=== PATIENT | female | born 1995 | race Caucasian/White ===

== ENCOUNTER 2017-04-30 13:14 | Outpatient (CLI) | payer BC | END 2017-04-30 13:15 | disposition EMS.NT | LOC: EMS 13:14 | PROVIDERS: ATTEND Surgery | DX: S40.811A Abrasion of right upper arm, initial encounter (principal); Y04.2XXA Assault by strike against or bumped into by another person, initial encounter ==

== ENCOUNTER 2017-06-06 13:35 | Outpatient (CLI) | payer BC, MEDICAID, OTHER | END 2017-06-06 13:36 | disposition critical access hospital (66) | LOC: EMS 13:35 | PROVIDERS: ATTEND Surgery | DX: S01.81XA Laceration without foreign body of other part of head, initial encounter (principal); Y00.XXXA Assault by blunt object, initial encounter | CPT/HCPCS: A0425; A0429 ==

== ENCOUNTER 2017-06-06 14:03 | Emergency (ER) | payer BC, MEDICAID, OTHER ==
[2017-06-06 14:11] VITALS: BP 128/82
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
== END 2017-06-06 15:59 | disposition home or self-care (01) ==
LOC: EDUNIT# → ED 14:03
DX: S01.81XA Laceration without foreign body of other part of head, initial encounter (principal); Y00.XXXA Assault by blunt object, initial encounter; Y92.830 Public park as the place of occurrence of the external cause; R03.0 Elevated blood-pressure reading, without diagnosis of hypertension; F17.200 Nicotine dependence, unspecified, uncomplicated
CPT/HCPCS: 12011; 99282; 99283

== ENCOUNTER 2018-01-23 11:37 | Emergency (ER) | payer BC, MEDICAID, OTHER ==
--- NOTE | 2018-01-23 12:24 | ED Physician Documentation ---
PD HPI FEMALE - Stated complaint Stated Complaint: FEMALE - Chief complaint Chief Complaint: General - History obtained from History obtained from: Patient - History of Present Illness Timing - onset: Other (she does not have any dysuria nor vaginal discharge.) Associated symptoms: No: Fever, Vaginal discharge, Genital sore/lesion, Dysuria , Urinary frequency Contributing factors: Exposed to STD (she found out her boyfriend had cheated on her and wants to be checked for STDs. No symptoms.) Similar symptoms before: Has not had sx before Recently seen: Not recently seen Review of Systems Constitutional: denies: Fever, Chills : denies: Dysuria, Frequency, Discharge Skin: denies: Rash Endocrine: denies: Weight loss, Swollen lymph nodes PD PAST MEDICAL HISTORY - Past Medical History Past Medical History: Yes Psych: Depression, Anxiety - Past Surgical History Past Surgical History: Yes Ortho: ACL reconstruction - Present Medications Home Medications: Ambulatory Orders Medication Instructions Recorded Confirmed Sertraline [Zoloft] 50 mg PO DAILY 06/06/17 06/06/17 risperiDONE [Risperdal] 1 mg PO DAILY 06/06/17 06/06/17 Sulfamethox/Trimeth 800/160 1 each PO BID #10 tablet 01/23/18 [Bactrim Ds 800/160] - Allergies Allergies/Adverse Reactions: Allergies Allergy/AdvReac Type Severity Reaction Status Date / Time No Known Drug Allergies Allergy Verified 06/06/17 14:59 - Social History Does the pt smoke?: Yes Smoking Status: Current every day smoker Does the pt drink ETOH?: No Does the pt have substance abuse?: No - Immunizations Immunizations are current?: Yes PD ED PE NORMAL - Vitals Vital signs reviewed: Yes - General General: Alert and oriented X 3, No acute distress, Well developed/nourished - Female Female : 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 Cervix appears normal. ) - Rectal Rectal: Deferred - Derm Derm: Normal color, Warm and dry Results - Vitals Vitals: Oxygen O2 Source Room air - Labs Labs: Microbiology 01/23/18 12:15 Urine Culture - Preliminary Urine,Clean Catch Laboratory Tests 01/23/18 01/23/18 01/23/18 12:15 12:15 12:58 Urine Color YELLOW Urine Clarity CLOUDY Urine pH 6.0 Ur Specific [place] 1.025 1.025 Urine Protein NEGATIVE Urine Glucose (UA) NEGATIVE Urine Ketones NEGATIVE Urine Occult Blood TRACE-INTA Urine Nitrite POSITIVE H Urine Bilirubin NEGATIVE Urine Urobilinogen 0.2 (NORMAL) Ur Leukocyte Esterase NEGATIVE Urine RBC 0-5 Urine WBC 0-3 Ur Squamous Epith Cells RARE Squamous Urine Bacteria Many H Ur Microscopic Review INDICATED Urine Culture Comments INDICATED Urine HCG, Qual NEGATIVE C.trachomatis RNA (TMA) NOT DETECTED Chlamydia/GC Comment SEE NOTE N.gonorrhoeae RNA (TMA) NOT DETECTED PD MEDICAL DECISION MAKING - ED course Complexity details: considered differential (she wanted screening for vaginal STDs (offered blood testing too for HIV and syphylis, but she declined). Incidental UTI.), d/w patient Departure - Departure Disposition: 01 Home, Self Care Clinical Impression: Concern about STD in female without diagnosis UTI (urinary tract infection) Qualifiers: Urinary tract infection type: acute cystitis Hematuria presence: without hematuria Qualified Code(s): N30.00 - Acute cystitis without hematuria Condition: Stable Record reviewed to determine appropriate education?: Yes Instructions: ED UTI Cystitis Female Prescriptions: Sulfamethox/Trimeth 800/160 [Bactrim Ds 800/160] 1 each PO BID #10 tablet Comments: Drink lots of fluids. Bactrim for UTI. The vaginal culture results will take about 3 days for results and will call you if they are positive. Discharge Date/Time: 01/23/18 13:16
[2018-01-23 12:32] LABS: BILIRUBIN,URINE NEGATIVE (NEGATIVE); GLUCOSE, URINE (UA) NEGATIVE (NEGATIVE); KETONES,URINE (UA) NEGATIVE (NEGATIVE); LEUKOCYTE ESTERASE, URINE NEGATIVE (NEGATIVE); NITRITE,URINE POSITIVE (NEGATIVE); OCCULT BLOOD,URINE TRACE-INTA (NEGATIVE); PROTEIN,URINE NEGATIVE (NEGATIVE); UROBILINOGEN,URINE 0.2 (NORMAL) E.U./dL (NORMAL)
[2018-01-23 12:35] LABS: CLARITY,URINE CLOUDY (CLEAR)
[2018-01-23 12:37] LABS: HCG UR QUAL NEGATIVE
[2018-01-23 12:44] LABS: BACTERIA,URINE Many /HPF (None Seen); RBC,URINE 0-5 /HPF (0-5); SQUAMOUS EPITHELIAL CELL,UR RARE Squamous (<= Few)
[2018-01-23] MEDS ORDERED: SULFAMETH/TRIMETH DS 800/160 MG TABLET PO STA (13:01)
[2018-01-23 13:08] VITALS: BP 124/75
== END 2018-01-23 13:16 | disposition home or self-care (01) ==
LOC: ED 11:37
DX: Z20.2 Contact with and (suspected) exposure to infections with a predominantly sexual mode of transmission (principal); N30.00 Acute cystitis without hematuria
CPT/HCPCS: 81001; 81025; 87077; 87086; 87181; 87491; 87591; 99283; A9270; 81003; 87210

== ENCOUNTER 2018-03-25 19:54 | Emergency (ER) | payer MEDICAID ==
[2018-03-25 20:58] LABS: HCG UR QUAL NEGATIVE
[2018-03-25 21:40] LABS: BILIRUBIN,URINE NEGATIVE (NEGATIVE); CLARITY,URINE CLEAR (CLEAR); GLUCOSE, URINE (UA) NEGATIVE (NEGATIVE); KETONES,URINE (UA) NEGATIVE (NEGATIVE); LEUKOCYTE ESTERASE, URINE NEGATIVE (NEGATIVE); NITRITE,URINE NEGATIVE (NEGATIVE); OCCULT BLOOD,URINE NEGATIVE (NEGATIVE); PH,URINE 6.5 PH (5.0-7.5); PROTEIN,URINE NEGATIVE (NEGATIVE); UROBILINOGEN,URINE 0.2 (NORMAL) E.U./dL (NORMAL)
--- NOTE | 2018-03-25 23:05 | ED Physician Documentation ---
PD HPI FEMALE - Stated complaint Stated Complaint: ABD PX - Chief complaint Chief Complaint: Abd Pain - History obtained from History obtained from: Patient - History of Present Illness Timing - onset: How many weeks ago (1) Timing - details: Intermittant Associated symptoms: Abdominal pain Contributing factors: Sexually active Similar symptoms before: Has not had sx before - Additional information Additional information: The patient is a 23-year-old female who presents with mild lower abdominal pain which she has had intermittently for the past week. She has noticed a.m. nausea and occasional vomiting for the past week. She took a home test yesterday and it was positive. She denies fever, dysuria, or vaginal bleeding. Her last menstrual period was about 6 weeks ago. Review of Systems Constitutional: denies: Fever Nose: denies: Congestion Throat: denies: Sore throat Respiratory: denies: Dyspnea, Cough GI: reports: Abdominal Pain, Nausea, Vomiting. denies: Diarrhea : reports: LMP (About 6 weeks ago.). denies: Dysuria, Vaginal bleeding Skin: denies: Rash Musculoskeletal: denies: Back pain Neurologic: denies: Headache PD PAST MEDICAL HISTORY - Past Medical History Past Medical History: No Endocrine/Autoimmune: None Psych: Depression, Anxiety - Past Surgical History Past Surgical History: Yes Ortho: ACL reconstruction - Present Medications Home Medications: Ambulatory Orders Medication Instructions Recorded Confirmed Sertraline [Zoloft] 50 mg PO DAILY 06/06/17 06/06/17 risperiDONE [Risperdal] 1 mg PO DAILY 06/06/17 06/06/17 Sulfamethox/Trimeth 800/160 1 each PO BID #10 tablet 01/23/18 [Bactrim Ds 800/160] - Allergies Allergies/Adverse Reactions: Allergies Allergy/AdvReac Type Severity Reaction Status Date / Time No Known Drug Allergies Allergy Verified 06/06/17 14:59 - Social History Does the pt smoke?: Yes Smoking Status: Current every day smoker Does the pt drink ETOH?: No Does the pt have substance abuse?: No - Immunizations Immunizations are current?: Yes - POLST Patient has POLST: No PD ED PE NORMAL - Vitals Vital signs reviewed: Yes (normal) - General General: Alert and oriented X 3, Well developed/nourished - HEENT HEENT: Atraumatic, Moist mucous membranes - Neck Neck: No adenopathy, No JVD - Cardiac Cardiac: RRR - Respiratory Respiratory: No respiratory distress, Clear bilaterally - Abdomen Abdomen: Soft, Non tender, No organomegaly - Back Back: No CVA TTP - Derm Derm: No rash - Extremities Extremities: No tenderness to palpate, No edema - Neuro Neuro: Alert and oriented X 3, No motor deficit, Normal speech Results - Vitals Vitals: Vital Signs - 24 hr 03/25/18 23:12 Temperature 36.4 C L Heart Rate 88 Respiratory 18 Rate Blood Pressure 110/57 L O2 Saturation 99 Oxygen O2 Source Room air - Labs Labs: Laboratory Tests 03/25/18 03/25/18 03/25/18 20:15 20:17 21:57 HCG, Quant 34.48 Urine Color YELLOW Urine Clarity CLEAR Urine pH 6.5 Ur Specific [place] 1.025 1.025 Urine Protein NEGATIVE Urine Glucose (UA) NEGATIVE Urine Ketones NEGATIVE Urine Occult Blood NEGATIVE Urine Nitrite NEGATIVE Urine Bilirubin NEGATIVE Urine Urobilinogen 0.2 (NORMAL) Ur Leukocyte Esterase NEGATIVE Ur Microscopic Review NOT INDICATED Urine Culture Comments NOT INDICATED Urine HCG, Qual NEGATIVE PD MEDICAL DECISION MAKING - ED course Complexity details: reviewed results, re-evaluated patient, considered differential, d/w patient ED course: The patient's presentation is concerning for the possibility of very early , versus ectopic , versus possible miscarriage. Her urine test is negative, but a serum quantitative hCG level is minimally elevated at 34.5. With an hCG level this low, I doubt that pelvic ultrasound would be of diagnostic value. The patient is asymptomatic while in the emergency department, with no tenderness to palpation of her abdomen, and no nausea. She is being discharged with a prescription to have quantitative hCG repeated in 3 days, with the results being called to her primary physician. She has an appointment scheduled with his primary physician tomorrow. I discussed with her and her companions potentially worrisome signs or symptoms that should prompt reevaluation in the emergency department. Departure - Departure Disposition: 01 Home, Self Care Clinical Impression: Elevated serum hCG Condition: Stable Instructions: ED Abdominal Pain Rule Out Ectopic Follow-Up: Dayan Giang DNP [Primary Care Provider] - Comments: Repeat the quantitative hCG level in 3 days. Follow up with your primary physician in 3 or 4 days. Call to schedule appointment. Return to the emergency department if increasing abdominal or pelvic pain, persistent vomiting, or otherwise worsening symptoms. Discharge Date/Time: 03/25/18 23:13
[2018-03-25 23:13] VITALS: BP 110/57
== END 2018-03-25 23:13 | disposition home or self-care (01) ==
LOC: ED 19:54
DX: R79.89 Other specified abnormal findings of blood chemistry (principal); F17.200 Nicotine dependence, unspecified, uncomplicated
CPT/HCPCS: 36415; 81001; 81003; 81025; 84702; 87086; 99283

== ENCOUNTER 2018-03-28 08:00 | Outpatient (CLI) | payer MEDICAID | END 2018-03-28 08:01 | disposition home or self-care (01) | LOC: LAB.N 08:00 | PROVIDERS: ATTEND Nurse Practitioner | DX: O02.81 Inappropriate change in quantitative human chorionic gonadotropin (hCG) in early pregnancy (principal) | CPT/HCPCS: 36415; 84702 ==

== ENCOUNTER 2018-04-06 11:20 | Emergency (ER) | payer MEDICAID ==
[2018-04-06 11:51] LABS: BILIRUBIN,URINE NEGATIVE (NEGATIVE); GLUCOSE, URINE (UA) NEGATIVE (NEGATIVE); KETONES,URINE (UA) NEGATIVE (NEGATIVE); LEUKOCYTE ESTERASE, URINE NEGATIVE (NEGATIVE); NITRITE,URINE POSITIVE (NEGATIVE); OCCULT BLOOD,URINE NEGATIVE (NEGATIVE); PH,URINE 7.5 PH (5.0-7.5); PROTEIN,URINE NEGATIVE (NEGATIVE); UROBILINOGEN,URINE 0.2 (NORMAL) E.U./dL (NORMAL)
[2018-04-06 11:53] LABS: CLARITY,URINE CLEAR (CLEAR); HCG UR QUAL POSITIVE
[2018-04-06 11:58] LABS: RBC,URINE 0-5 /HPF (0-5)
[2018-04-06 11:59] LABS: BACTERIA,URINE Many /HPF (None Seen); SQUAMOUS EPITHELIAL CELL,UR FEW Squamous (<= Few)
[2018-04-06] MEDS ORDERED: SODIUM CHLORIDE 0.9% 1,000 ML IV ONE (12:10)
[2018-04-06] MEDS ORDERED: NITROFURANTOIN MACRO 100 MG CAPSULE PO STA (12:10)
--- NOTE | 2018-04-06 12:12 | ED Physician Documentation ---
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 patient states that she has had the pain for about the last 4 days and the dizziness was yesterday. patient has not had any care. Patient denies vaginal bleeding or vaginal discharge. Review of Systems Ten Systems: 10 systems reviewed and negative Constitutional: denies: Fever, Chills GI: reports: Abdominal Pain. denies: Nausea, Vomiting : denies: Discharge, Vaginal bleeding PD PAST MEDICAL HISTORY - Past Medical History Past Medical History: Yes Cardiovascular: None Respiratory: None Neuro: Migraines Endocrine/Autoimmune: None GI: None SERVICES MANAGER: None : Chronic bladder infection HEENT: None Psych: Depression, Anxiety Musculoskeletal: None Derm: None - Past Surgical History Past Surgical History: Yes Ortho: ACL reconstruction - Present Medications Home Medications: Ambulatory Orders Medication Instructions Recorded Confirmed Nitrofurantoin Monohyd/M-Cryst 100 mg PO BID 5 Days capsule 04/06/18 [Macrobid 100 mg Capsule] - Allergies Allergies/Adverse Reactions: Allergies Allergy/AdvReac Type Severity Reaction Status Date / Time No Known Drug Allergies Allergy Verified 06/06/17 14:59 - Social History Does the pt smoke?: Yes Smoking Status: Former smoker Does the pt drink ETOH?: No Does the pt have substance abuse?: No - Immunizations Immunizations are current?: Yes - POLST Patient has POLST: No PD ED PE NORMAL - Vitals Vital signs reviewed: Yes - General General: Alert and oriented X 3, No acute distress - HEENT HEENT: Atraumatic, PERRL - Neck Neck: Supple, no meningeal sign - Cardiac Cardiac: RRR - Respiratory Respiratory: No respiratory distress - Abdomen Abdomen: Soft, Non tender, Non distended - Rectal Rectal: Deferred - Derm Derm: Normal color, Warm and dry - Extremities Extremities: No deformity - Neuro Neuro: Alert and oriented X 3 Eye Opening: Spontaneous Motor: Obeys Commands Verbal: Oriented GCS Score: 15 - Psych Psych: Normal mood Results - Vitals Vitals: Vital Signs - 24 hr 04/06/18 04/06/18 11:26 13:53 Temperature 36.6 C 36.4 C L Heart Rate 88 92 Respiratory 16 18 Rate Blood Pressure 134/74 H 115/72 O2 Saturation 98 100 Oxygen O2 Source Room air - Labs Labs: Laboratory Tests 04/06/18 04/06/18 04/06/18 11:45 12:40 12:40 WBC 7.3 RBC 4.00 L Hgb 13.0 Hct 37.8 MCV 94.5 MCH 32.5 H MCHC 34.3 RDW 13.0 Plt Count 198 MPV 11.2 H Neut # (Auto) 4.4 Lymph # (Auto) 2.2 Pope # (Auto) 0.6 Eos # (Auto) 0.1 Baso # (Auto) 0.0 Absolute Nucleated RBC 0.00 Nucleated RBC % 0.0 Sodium 135 Potassium 4.1 Chloride 104 Carbon Dioxide 26 Anion Gap 5.0 L BUN 10 Creatinine 0.6 Estimated GFR (MDRD) 126 Glucose 72 Calcium 9.0 Total Bilirubin 0.5 AST 22 ALT 16 Alkaline Phosphatase 55 Total Protein 7.2 Albumin 3.9 Globulin 3.3 Albumin/Globulin Ratio 1.2 Lipase 29 HCG, Quant Urine Color YELLOW Urine Clarity CLEAR Urine pH 7.5 Ur Specific [place] 1.015 Urine Protein NEGATIVE Urine Glucose (UA) NEGATIVE Urine Ketones NEGATIVE Urine Occult Blood NEGATIVE Urine Nitrite POSITIVE H Urine Bilirubin NEGATIVE Urine Urobilinogen 0.2 (NORMAL) Ur Leukocyte Esterase NEGATIVE Urine RBC 0-5 Urine WBC 0-3 Ur Squamous Epith Cells FEW Squamous Urine Bacteria Many H Ur Microscopic Review INDICATED Urine Culture Comments INDICATED Urine HCG, Qual POSITIVE 04/06/18 12:40 WBC RBC Hgb Hct MCV MCH MCHC RDW Plt Count MPV Neut # (Auto) Lymph # (Auto) Pope # (Auto) Eos # (Auto) Baso # (Auto) Absolute Nucleated RBC Nucleated RBC % Sodium Potassium Chloride Carbon Dioxide Anion Gap BUN Creatinine Estimated GFR (MDRD) Glucose Calcium Total Bilirubin AST ALT Alkaline Phosphatase Total Protein Albumin Globulin Albumin/Globulin Ratio Lipase HCG, Quant 8032.00 Urine Color Urine Clarity Urine pH Ur Specific [place] Urine Protein Urine Glucose (UA) Urine Ketones Urine Occult Blood Urine Nitrite Urine Bilirubin Urine Urobilinogen Ur Leukocyte Esterase Urine RBC Urine WBC Ur Squamous Epith Cells Urine Bacteria Ur Microscopic Review Urine Culture Comments Urine HCG, Qual - Rads (name of study) pelvic ultrasound Radiology: EMP read contemporaneously (iup approximately 5 weeks 4 days) PD MEDICAL DECISION MAKING - ED course Complexity details: reviewed old records, reviewed results, re-evaluated patient , considered differential, d/w patient ED course: Patient was seen and examined at bedside. urine was collected and labs were drawn. ultrasound was ordered. patient's urine did have bacteria in it and patietn was treated with macrobid. When patient returned from ultrasound the results were reviewed. there was an IUP approximately 5 weeks 4 days. Patient stated that she did not want to wait for her fluids. patient required no further work up and was stable for discharge with outpatient followup. - Sepsis Event Vital Signs: Vital Signs - 24 hr 04/06/18 04/06/18 11:26 13:53 Temperature 36.6 C 36.4 C L Heart Rate 88 92 Respiratory 16 18 Rate Blood Pressure 134/74 H 115/72 O2 Saturation 98 100 Oxygen O2 Source Room air Departure - Departure Disposition: 01 Home, Self Care Clinical Impression: Intrauterine Condition: Good Instructions: ED Care, ED UTI Cystitis Female Follow-Up: Dayan Giang DNP [Primary Care Provider] - Within 3 Days Prescriptions: Nitrofurantoin Monohyd/M-Cryst [Macrobid 100 mg Capsule] 100 mg PO BID 5 Days capsule Comments: Your symptoms today are at least in part being caused by a urinary tract infection. You will need to stay well hydrated and increase your fluid intake. You had your first dose of antibiotics today and will need to be on them for the next 5 days. you should follow up with an OB to monitor the . You may return to the emergency department at any time for new, worsening or uncontrollable symptoms. Discharge Date/Time: 04/06/18 13:57
[2018-04-06 12:53] LABS: BASOPHILS % (AUTO) 0.5 %; EOSINOPHILS # (AUTO) 0.1 10^3/uL (0.0-0.7); EOSINOPHILS % (AUTO) 1.1 %; LYMPHOCYTES # (AUTO) 2.2 10^3/uL (1.5-3.5); MEAN CORPUSCULAR HEMOGLOBIN 32.5 pg (27.0-31.0); MEAN CORPUSCULAR HGB CONC 34.3 g/dL (32.0-36.0); MEAN CORPUSCULAR VOLUME 94.5 fL (81.0-99.0); MEAN PLATELET VOLUME 11.2 fL (7.9-10.8); MONOCYTES # (AUTO) 0.6 10^3/uL (0.0-1.0); MONOCYTES % (AUTO) 8.5 %; NEUTROPHILS # (AUTO) 4.4 10^3/uL (1.5-6.6); NEUTROPHILS % (AUTO) 59.9 %; PLT - PLATELET COUNT 198 10^3/uL (130-450); WHITE BLOOD COUNT 7.3 x10^3/uL (4.8-10.8)
[2018-04-06 13:15] LABS: ALBUMIN 3.9 g/dL (3.2-5.5); ALBUMIN/GLOBULIN RATIO 1.2 (1.0-2.2); BILIRUBIN,TOTAL 0.5 mg/dL (0.2-1.0); CREATININE 0.6 mg/dL (0.4-1.0); TOTAL PROTEIN 7.2 g/dL (6.7-8.2)
--- NOTE | 2018-04-06 13:49 | Ultrasound Report ---
Procedure Date: 04/06/2018 Accession Number: [id number] / [id number] Procedure: US - OB Transvaginal CPT Code: FULL RESULT: EXAM: OB First Trimester, OB Transvaginal DATE: 04/06/2018 1:11 PM CLINICAL HISTORY: preg vag bleeding LMP: 02/22/2018. COMPARISONS: None. TECHNIQUE: Realtime transabdominal imaging performed to identify the uterus and adnexa and as an overview of other pelvic structures, followed by transvaginal imaging for better assessment of the uterine contents and/or adnexa, with static image documentation. CLINICAL DATES: EGA 6 weeks 1 days with THOMAS 11/29/2018 based on LMP. ASSESSMENT: Gestational Sac: Single intrauterine. Normal shape. Mean gestational sac diameter: 8 mm = 5 weeks 4 days. Embryo: Too early to visualize. Yolk sac: 2 mm. Amniotic fluid: Not accurately assessed at this gestational age. Early placenta: Not visible at this gestational age. Other: No perigestational fluid collection demonstrated. MATERNAL STRUCTURES: Uterus: Anteverted. Unremarkable. Cervix: Closed. Right ovary/adnexa: Likely corpus luteum, measuring 2 cm.. The ovary measures 3.4 x 3.0 x 2.7 cm, volume 14 cc. Left ovary/adnexa: Unremarkable. The ovary measures 2.8 x 2.5 x 1.8 cm, volume 7 cc. Free Fluid: None. Other: None. IMPRESSION: 1. Intrauterine gestational sac with yolk sac visualized. It is too early for visualization of pole or heart motion. No perigestational hemorrhage is identified. 2. Assigned dating is THOMAS 11/29/2018 based on LMP. PATI
--- NOTE | 2018-04-06 13:49 | Ultrasound Report ---
Procedure Date: 04/06/2018 Accession Number: [id number] / [id number] Procedure: US - OB First Trimester CPT Code: FULL RESULT: EXAM: OB First Trimester, OB Transvaginal DATE: 04/06/2018 1:11 PM CLINICAL HISTORY: preg vag bleeding LMP: 02/22/2018. COMPARISONS: None. TECHNIQUE: Realtime transabdominal imaging performed to identify the uterus and adnexa and as an overview of other pelvic structures, followed by transvaginal imaging for better assessment of the uterine contents and/or adnexa, with static image documentation. CLINICAL DATES: EGA 6 weeks 1 days with THOMAS 11/29/2018 based on LMP. ASSESSMENT: Gestational Sac: Single intrauterine. Normal shape. Mean gestational sac diameter: 8 mm = 5 weeks 4 days. Embryo: Too early to visualize. Yolk sac: 2 mm. Amniotic fluid: Not accurately assessed at this gestational age. Early placenta: Not visible at this gestational age. Other: No perigestational fluid collection demonstrated. MATERNAL STRUCTURES: Uterus: Anteverted. Unremarkable. Cervix: Closed. Right ovary/adnexa: Likely corpus luteum, measuring 2 cm.. The ovary measures 3.4 x 3.0 x 2.7 cm, volume 14 cc. Left ovary/adnexa: Unremarkable. The ovary measures 2.8 x 2.5 x 1.8 cm, volume 7 cc. Free Fluid: None. Other: None. IMPRESSION: 1. Intrauterine gestational sac with yolk sac visualized. It is too early for visualization of pole or heart motion. No perigestational hemorrhage is identified. 2. Assigned dating is THOMAS 11/29/2018 based on LMP. PATI
[2018-04-06 13:53] VITALS: BP 115/72
== END 2018-04-06 13:57 | disposition home or self-care (01) ==
LOC: ED 11:20
DX: O23.41 Unspecified infection of urinary tract in pregnancy, first trimester (principal); Z3A.01 Less than 8 weeks gestation of pregnancy; Z87.891 Personal history of nicotine dependence
CPT/HCPCS: 36415; 76801; 76817; 80053; 81001; 81025; 83690; 84702; 85025; 87077; 87086; 87181; 99283; A9270; 81003

== ENCOUNTER 2018-04-28 09:39 | Emergency (ER) | payer MEDICAID ==
[2018-04-28 09:49] VITALS: BP 119/74
--- NOTE | 2018-04-28 10:27 | ED Physician Documentation ---
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 : Chronic bladder infection HEENT: None Psych: Depression, Anxiety Musculoskeletal: None Derm: None - Past Surgical History Past Surgical History: Yes Ortho: ACL reconstruction - Allergies Allergies/Adverse Reactions: Allergies Allergy/AdvReac Type Severity Reaction Status Date / Time No Known Drug Allergies Allergy Verified 04/28/18 09:49 - Social History Does the pt smoke?: Yes Smoking Status: Former smoker Does the pt drink ETOH?: No Does the pt have substance abuse?: No - Immunizations Immunizations are current?: Yes - POLST Patient has POLST: No Results - Vitals Vitals: Oxygen O2 Source Room air PD MEDICAL DECISION MAKING - Sepsis Event Vital Signs: Oxygen O2 Source Room air Departure - Departure Disposition: ED Left Without Being Seen Discharge Date/Time: 04/28/18 10:30
== END 2018-04-28 10:30 | disposition left against medical advice (07) ==
LOC: ED 09:39
DX: Z53.21 Procedure and treatment not carried out due to patient leaving prior to being seen by health care provider (principal)

== ENCOUNTER 2018-05-11 09:25 | Outpatient (CLI) | payer MEDICAID ==
[2018-05-11 09:49] LABS: BILIRUBIN,URINE NEGATIVE (NEGATIVE); GLUCOSE, URINE (UA) NEGATIVE (NEGATIVE); KETONES,URINE (UA) NEGATIVE (NEGATIVE); LEUKOCYTE ESTERASE, URINE NEGATIVE (NEGATIVE); NITRITE,URINE NEGATIVE (NEGATIVE); OCCULT BLOOD,URINE NEGATIVE (NEGATIVE); PROTEIN,URINE NEGATIVE (NEGATIVE); UROBILINOGEN,URINE 0.2 (NORMAL) E.U./dL (NORMAL)
[2018-05-11 09:49] LABS: BASOPHILS % (AUTO) 0.2 %; EOSINOPHILS # (AUTO) 0.1 10^3/uL (0.0-0.7); EOSINOPHILS % (AUTO) 0.9 %; LYMPHOCYTES # (AUTO) 1.6 10^3/uL (1.5-3.5); LYMPHOCYTES % (AUTO) 18.4 %; MEAN CORPUSCULAR HEMOGLOBIN 32.2 pg (27.0-31.0); MEAN CORPUSCULAR HGB CONC 34.5 g/dL (32.0-36.0); MEAN CORPUSCULAR VOLUME 93.3 fL (81.0-99.0); MEAN PLATELET VOLUME 10.6 fL (7.9-10.8); MONOCYTES # (AUTO) 0.5 10^3/uL (0.0-1.0); MONOCYTES % (AUTO) 5.9 %; NEUTROPHILS # (AUTO) 6.5 10^3/uL (1.5-6.6); NEUTROPHILS % (AUTO) 74.6 %; PLT - PLATELET COUNT 186 10^3/uL (130-450); RED BLOOD COUNT 4.04 10^6/uL (4.20-5.40); RED CELL DISTRIBUTION WIDTH 12.5 % (12.0-15.0); WHITE BLOOD COUNT 8.7 x10^3/uL (4.8-10.8)
[2018-05-11 10:13] LABS: BACTERIA,URINE None Seen /HPF (None Seen); CLARITY,URINE CLEAR (CLEAR); RBC,URINE 0-5 /HPF (0-5); SQUAMOUS EPITHELIAL CELL,UR FEW Squamous (<= Few)
[2018-05-12 13:47] LABS: HEPATITIS C ANTIBODY NON-REACTIVE (NON-REACTIVE)
[2018-05-12 14:36] LABS: HIV AG/AB 4TH GEN NON-REACTIVE (NON-REACTIVE)
[2018-05-12 15:41] LABS: HEPATITIS B SURFACE ANTIGEN NON-REACTIVE (NON-REACTIVE)
== END 2018-05-11 09:26 | disposition home or self-care (01) ==
LOC: LAB 09:25
PROVIDERS: ATTEND Nurse Practitioner Obstetrics & Gynecology
DX: Z36.9 Encounter for antenatal screening, unspecified (principal)
CPT/HCPCS: 36415; 81001; 81599; 85025; 86762; 86803; 86850; 86900; 86901; 87340; 87389

== ENCOUNTER 2018-05-31 10:58 | Outpatient (CLI) | payer MEDICAID | END 2018-05-31 10:59 | disposition EMS.NT | LOC: EMS 10:58 | PROVIDERS: ATTEND Surgery | DX: S31.010A Laceration without foreign body of lower back and pelvis without penetration into retroperitoneum, initial encounter (principal); X99.8XXA Assault by other sharp object, initial encounter ==

== ENCOUNTER 2018-06-14 19:59 | Emergency (ER) | payer MEDICAID ==
[2018-06-14 20:09] VITALS: BP 119/76
== END 2018-06-14 21:27 | disposition left against medical advice (07) ==
LOC: ED 19:59
DX: Z53.21 Procedure and treatment not carried out due to patient leaving prior to being seen by health care provider (principal)

== ENCOUNTER 2018-06-29 07:38 | Outpatient (CLI) | payer MEDICAID ==
--- NOTE | 2018-06-29 11:36 | Ultrasound Report ---
Reason: ENCOUNTER FOR SCREENING, UNSPECIFIED Procedure Date: 06/29/2018 Accession Number: [id number] / [id number] Procedure: US - OB Detailed Eval CPT Code: FULL RESULT: EXAM: COMPLETE OBSTETRICAL ULTRASOUND EXAM DATE: 06/29/2018 09:43 AM. CLINICAL HISTORY: anatomic survey. COMPARISON: 04/06/2018 TECHNIQUE: Real-time sonographic evaluation of the fetus performed by the oven baker. Multiple policy services representative static images were saved for review. Additional transvaginal imaging to more accurately evaluate cervical length/placental position/etc. DATING: Established THOMAS 11/29/2018 based on LMP. EGA 17 weeks 4 days with THOMAS 12/03/2018 based on prior ultrasound.. EGA 17 weeks 3 days with THOMAS 12/04/2018 based on the current ultrasound. GENERAL EVALUATION Trevino . Cardiac activity: 150 bpm. movement: Present Presentation: Breech Placenta: Anterior position. No evidence for previa. Umbilical cord: Not well seen Amniotic fluid: Subjectively normal. MVP 4.5 cm. BIOMETRY Bi-Parietal Diameter (BPD): 3.6 cm, 17 weeks 0 days Head Circumference (HC): 13.7 cm, 17 weeks 1 day Abdominal Circumference (AC): 12.3 cm, 18 weeks 0 days Femur Length (FL): 2.4 cm, 17 weeks 4 days Estimated Weight: 206 gm, 29th percentile. ANATOMY The intracranial structures, profile, face/nose/lips, spine, stomach, abdominal wall and cord insertion, diaphragm, kidneys, bladder, and extremities were imaged and demonstrate no abnormality. Three-vessel cord, four-chamber heart, cardiac outflow tracts are not well seen. MATERNAL STRUCTURES Uterus: Unremarkable. Cervix: Long and closed. Transabdominal length 4.2 cm. Right ovary/adnexa: Unremarkable. Left ovary/adnexa: Unremarkable. Free fluid: None. IMPRESSION: 1. Trevino intrauterine with gestational age 17 weeks 3 days based on composite ultrasound measurements today, concordant with the expected age based on LMP. 2. Estimated weight is within expected limits for assigned dating. 3. 4 chamber heart, cardiac outflow tracts, and three-vessel cord could not be imaged today. Consider repeat ultrasound in 2-4 weeks. Otherwise no anatomic anomalies are identified.
== END 2018-06-29 07:39 | disposition home or self-care (01) ==
LOC: DI 07:38
PROVIDERS: ATTEND Nurse Practitioner Obstetrics & Gynecology
DX: Z36.9 Encounter for antenatal screening, unspecified (principal); Z3A.17 17 weeks gestation of pregnancy
CPT/HCPCS: 76811

== ENCOUNTER 2018-08-22 09:30 | Outpatient (CLI) | payer MEDICAID ==
--- NOTE | 2018-08-22 13:04 | Ultrasound Report ---
Reason: ENCOUNTER FOR OTHER SCREEING FOLLOW UP Procedure Date: 08/22/2018 Accession Number: [id number] / [id number] Procedure: US - OB F/U or Repeat CPT Code: FULL RESULT: EXAM: COMPLETE OBSTETRICAL ULTRASOUND EXAM DATE: 08/22/2018 10:41 AM. CLINICAL HISTORY: anatomic survey. COMPARISON: None. TECHNIQUE: Real-time sonographic evaluation of the fetus performed by the agricultural commodities inspector. Multiple traffic representative static images were saved for review. DATING: Established EGA 25 weeks 5 days with THOMAS 11/30/2018 based on referring obstetric provider. EGA 25 weeks 2 days with THOMAS 12/03/2018 based on first ultrasound. EGA 25 weeks 1 day with THOMAS 12/04/2018 based on the current ultrasound. GENERAL EVALUATION Trevino . Cardiac activity: 147 bpm. movement: Visualized. Presentation: Terrence breech. Placenta: Anterior position. No evidence for previa. Umbilical cord: 3 vessel cord. Central placental cord origin. Amniotic fluid: ANTONI 14 MVP 4.2 cm. BIOMETRY Bi-Parietal Diameter (BPD): 6.4 cm, 25 weeks 6 days Head Circumference (HC): 23.1 cm, 25 weeks 0 days Abdominal Circumference (AC): 20.4 cm, 24 weeks 6 days Femur Length (FL): 4.6 cm, 25 weeks 2 days Estimated Weight: 781 grams, 39th percentile for 25 weeks and 5 days. ANATOMY The four-chamber view is obtained and reveals no anatomic abnormality. MATERNAL STRUCTURES Uterus: Unremarkable. Cervix: Long and closed. Transabdominal length 4.1 cm. Free fluid: None. IMPRESSION: 1. Trevino live intrauterine with gestational age 25 weeks 5 days based on established due date as per the referring OB provider. 2. Estimated weight is within expected limits for assigned dating. 3. Normal 4 chamber cardiac view. Due to position, the right ventricular outflow tract and left ventricular outflow tract were not seen. The patient was given the option of waiting an additional 15 minutes and rescanning versus returning for repeat visualization attempt. The patient elected to return at a later time. PATI
== END 2018-08-22 09:31 | disposition home or self-care (01) ==
LOC: DI 09:30
PROVIDERS: ATTEND Nurse Practitioner Obstetrics & Gynecology
DX: Z36.2 Encounter for other antenatal screening follow-up (principal); Z3A.25 25 weeks gestation of pregnancy
CPT/HCPCS: 76816

== ENCOUNTER 2018-09-25 09:08 | Outpatient (CLI) | payer MEDICAID ==
[2018-09-25 10:49] LABS: HGB - HEMOGLOBIN 11.3 g/dL (12.0-16.0); MEAN CORPUSCULAR HEMOGLOBIN 31.2 pg (27.0-31.0); MEAN CORPUSCULAR VOLUME 89.3 fL (81.0-99.0); MEAN PLATELET VOLUME 10.2 fL (7.9-10.8); RED BLOOD COUNT 3.61 10^6/uL (4.20-5.40); RED CELL DISTRIBUTION WIDTH 13.3 % (12.0-15.0); WHITE BLOOD COUNT 8.2 x10^3/uL (4.8-10.8)
== END 2018-09-25 09:09 | disposition home or self-care (01) ==
LOC: LAB 09:08
PROVIDERS: ATTEND Nurse Practitioner Obstetrics & Gynecology
DX: Z36.9 Encounter for antenatal screening, unspecified (principal)
CPT/HCPCS: 36415; 82950; 85027; 86850

== ENCOUNTER 2018-10-07 18:31 | Outpatient (CLI) | payer MEDICAID ==
[2018-10-07 18:48] VITALS: BP 129/85
[2018-10-07 19:26] LABS: BASOPHILS % (AUTO) 0.2 %; EOSINOPHILS # (AUTO) 0.2 10^3/uL (0.0-0.7); EOSINOPHILS % (AUTO) 2.2 %; HGB - HEMOGLOBIN 11.1 g/dL (12.0-16.0); LYMPHOCYTES # (AUTO) 1.7 10^3/uL (1.5-3.5); LYMPHOCYTES % (AUTO) 19.1 %; MEAN CORPUSCULAR HEMOGLOBIN 30.7 pg (27.0-31.0); MEAN CORPUSCULAR HGB CONC 33.7 g/dL (32.0-36.0); MEAN PLATELET VOLUME 10.1 fL (7.9-10.8); MONOCYTES # (AUTO) 0.6 10^3/uL (0.0-1.0); MONOCYTES % (AUTO) 7.1 %; NEUTROPHILS # (AUTO) 6.4 10^3/uL (1.5-6.6); NEUTROPHILS % (AUTO) 71.4 %; PLT - PLATELET COUNT 166 10^3/uL (130-450); RED BLOOD COUNT 3.62 10^6/uL (4.20-5.40); RED CELL DISTRIBUTION WIDTH 13.7 % (12.0-15.0)
[2018-10-07 20:02] LABS: BILIRUBIN,URINE NEGATIVE (NEGATIVE); GLUCOSE, URINE (UA) NEGATIVE (NEGATIVE); KETONES,URINE (UA) 40 mg/dL (NEGATIVE); LEUKOCYTE ESTERASE, URINE NEGATIVE (NEGATIVE); NITRITE,URINE NEGATIVE (NEGATIVE); OCCULT BLOOD,URINE NEGATIVE (NEGATIVE); PH,URINE 6.5 PH (5.0-7.5); PROTEIN,URINE NEGATIVE (NEGATIVE); UROBILINOGEN,URINE 0.2 (NORMAL) E.U./dL (NORMAL)
[2018-10-07 20:03] LABS: CLARITY,URINE CLEAR (CLEAR)
== END 2018-10-07 20:30 | disposition home or self-care (01) ==
LOC: WFO 18:31 → FBP 18:32 → WFO 20:30
PROVIDERS: ATTEND Nurse Practitioner Obstetrics & Gynecology
DX: O36.8130 Decreased fetal movements, third trimester, not applicable or unspecified (principal); O99.89 Other specified diseases and conditions complicating pregnancy, childbirth and the puerperium; M54.5 Low back pain; R31.0 Gross hematuria; Z3A.32 32 weeks gestation of pregnancy
CPT/HCPCS: 81001; 81003; 85025; 87086; 99213

== ENCOUNTER 2018-10-24 13:35 | Outpatient (CLI) | payer MEDICAID ==
--- NOTE | 2018-10-25 08:05 | Ultrasound Report ---
Reason: ENCOUNTER FOR ANT SCREENING Procedure Date: 10/24/2018 Accession Number: [id number] / [id number] Procedure: US - OB Limited CPT Code: FULL RESULT: EXAM: LIMITED OBSTETRICAL ULTRASOUND. EXAM DATE: 10/24/2018 03:05 PM. CLINICAL HISTORY: Follow-up of anatomy survey, previously incomplete visualization of right and left ventricular outflow tracts. COMPARISON: OB follow up or repeat 08/22/2018 9:33 AM. TECHNIQUE: Real-time sonographic evaluation of the fetus performed by the senior data warehouse architect. Multiple passenger relations representative static images were saved for review. DATING: Established EGA 34 weeks and 5 days with THOMAS 11/30/2018. GENERAL EVALUATION Trevino . Cardiac activity: 152 bpm. movement: Visualized. Presentation: Cephalic. Placenta: Anterior position. Amniotic fluid: Normal. ANTONI 14.2 cm. MVP 5.9 cm. ANATOMY The right ventricular outflow tract was adequately visualized and appeared normal. The left ventricular outflow tract was once again suboptimally seen with no cardiac abnormality identified on today's exam. MATERNAL STRUCTURES Visualized portions were unremarkable. The transabdominal cervix appears long and closed, 5.5 cm. IMPRESSION: 1. Trevino live intrauterine with gestational age 34 weeks 5 days based on 11/30/2018. 2. Normal right ventricular outflow tract. 3. No good acoustic window for evaluation of the left ventricular outflow tract could be established. RECOMMENDATION: At this advanced gestational age, it is unclear whether good visualization of the left ventricular outflow tract can easily be accomplished. If visualization prior to delivery is clinically indicated, further attempts can be made. RADIA
== END 2018-10-24 13:36 | disposition home or self-care (01) ==
LOC: DI 13:35
PROVIDERS: ATTEND Nurse Practitioner Obstetrics & Gynecology
DX: Z36.89 Encounter for other specified antenatal screening (principal)
CPT/HCPCS: 76815

== ENCOUNTER 2018-11-06 13:21 | Outpatient (CLI) | payer MEDICAID ==
[2018-11-06 14:04] VITALS: BP 108/70
[2018-11-06 14:08] LABS: BILIRUBIN,URINE NEGATIVE (NEGATIVE); CLARITY,URINE HAZY (CLEAR); GLUCOSE, URINE (UA) NEGATIVE (NEGATIVE); KETONES,URINE (UA) TRACE mg/dL (NEGATIVE); LEUKOCYTE ESTERASE, URINE NEGATIVE (NEGATIVE); NITRITE,URINE NEGATIVE (NEGATIVE); OCCULT BLOOD,URINE LARGE (NEGATIVE); PH,URINE 7.5 PH (5.0-7.5); PROTEIN,URINE NEGATIVE (NEGATIVE); UROBILINOGEN,URINE 0.2 (NORMAL) E.U./dL (NORMAL)
[2018-11-06 14:34] LABS: BACTERIA,URINE Few /HPF (None Seen); MUCUS,URINE Few Strands; RBC,URINE TNTC /HPF (0-5); SQUAMOUS EPITHELIAL CELL,UR RARE Squamous (<= Few)
[2018-11-06] MEDS ORDERED: LACTATED RINGERS 1,000 ML IV ONE (14:49)
[2018-11-06] MEDS ORDERED: SODIUM CHLORIDE FLUSH 0.9% 10 ML SYRINGE ONE (14:54)
== END 2018-11-06 16:50 | disposition home or self-care (01) ==
LOC: WFO 13:21 → FBP 13:21 → WFO 16:50
PROVIDERS: ATTEND Nurse Practitioner Obstetrics & Gynecology
DX: O47.03 False labor before 37 completed weeks of gestation, third trimester (principal); Z3A.36 36 weeks gestation of pregnancy
CPT/HCPCS: 81001; 99213; J7120; 81003; 87086

== ENCOUNTER 2018-11-12 08:00 | Outpatient (CLI) | payer MEDICAID | END 2018-11-12 23:59 | disposition home or self-care (01) | LOC: LAB.R 08:00 | PROVIDERS: ATTEND Registered Nurse | DX: Z64.0 Problems related to unwanted pregnancy (principal); N30.90 Cystitis, unspecified without hematuria | CPT/HCPCS: 87086; 87491; 87591; 87797 ==

== ENCOUNTER 2018-11-12 11:07 | Outpatient (CLI) | payer MEDICAID ==
[2018-11-13 12:26] LABS: HEPATITIS C ANTIBODY NON-REACTIVE (NON-REACTIVE); HIV AG/AB 4TH GEN NON-REACTIVE (NON-REACTIVE)
[2018-11-14 11:46] LABS: HSV 2 IGG TYPE SPECIFIC AB <0.90 index
== END 2018-11-12 11:08 | disposition home or self-care (01) ==
LOC: LAB 11:07
PROVIDERS: ATTEND Registered Nurse
DX: O98.319 Other infections with a predominantly sexual mode of transmission complicating pregnancy, unspecified trimester (principal); A60.00 Herpesviral infection of urogenital system, unspecified; Z3A.00 Weeks of gestation of pregnancy not specified; Z64.0 Problems related to unwanted pregnancy; N30.90 Cystitis, unspecified without hematuria
CPT/HCPCS: 36415; 81599; 86695; 86696; 86803; 87086; 87389; 87491; 87591; 87797

== ENCOUNTER 2018-11-21 11:27 | Outpatient (CLI) | payer MEDICAID ==
[2018-11-21 11:48] VITALS: BP 123/71
[2018-11-21 12:54] LABS: RUPTURE OF MEMBRANES PLUS NEGATIVE (NEGATIVE)
== END 2018-11-21 13:20 | disposition home or self-care (01) ==
LOC: WFO 11:27 → FBP 11:31 → WFO 13:20
PROVIDERS: ATTEND Registered Nurse
DX: O47.1 False labor at or after 37 completed weeks of gestation (principal); O99.89 Other specified diseases and conditions complicating pregnancy, childbirth and the puerperium; N89.8 Other specified noninflammatory disorders of vagina; Z3A.39 39 weeks gestation of pregnancy; Z79.899 Other long term (current) drug therapy
CPT/HCPCS: 84112; 99213

== ENCOUNTER 2018-11-23 08:18 | Inpatient (IN) | payer MEDICAID ==
[2018-11-23] MEDS ORDERED: FLUTICASONE NASAL SPRAY NAS SCH (09:00)
[2018-11-23] MEDS ORDERED: fentaNYL 100 MCG/2 ML VIAL IVP PRN (09:01)
[2018-11-23] MEDS ORDERED: SODIUM CHLORIDE FLUSH 0.9% 10 ML SYRINGE IVP PRN (09:01)
[2018-11-23] MEDS ORDERED: PENICILLIN G POTASSIUM 5,000,000 UNIT in SODIUM CHLORIDE 0.9% MINIBAG 100 ML IV ONE (10:00)
[2018-11-23] MEDS: LACTATED RINGERS 1,000 ML IV SCH (10:11)
[2018-11-23] MEDS: miSOPROStol 100 MCG TABLET BC SCH ×3 (10:17→18:05)
[2018-11-23 10:23] LABS: BASOPHILS % (AUTO) 0.2 %; EOSINOPHILS # (AUTO) 0.1 10^3/uL (0.0-0.7); EOSINOPHILS % (AUTO) 1.1 %; HGB - HEMOGLOBIN 11.5 g/dL (12.0-16.0); LYMPHOCYTES # (AUTO) 1.7 10^3/uL (1.5-3.5); LYMPHOCYTES % (AUTO) 14.4 %; MEAN CORPUSCULAR HEMOGLOBIN 30.3 pg (27.0-31.0); MEAN CORPUSCULAR HGB CONC 34.4 g/dL (32.0-36.0); MEAN CORPUSCULAR VOLUME 88.2 fL (81.0-99.0); MEAN PLATELET VOLUME 11.5 fL (7.9-10.8); MONOCYTES # (AUTO) 0.5 10^3/uL (0.0-1.0); MONOCYTES % (AUTO) 3.9 %; NEUTROPHILS # (AUTO) 9.3 10^3/uL (1.5-6.6); NEUTROPHILS % (AUTO) 80.4 %; PLT - PLATELET COUNT 153 10^3/uL (130-450); RED CELL DISTRIBUTION WIDTH 14.4 % (12.0-15.0); WHITE BLOOD COUNT 11.6 x10^3/uL (4.8-10.8)
[2018-11-23] MEDS: NICOTINE 14 MG PATCH TOP SCH (10:25)
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
[2018-11-23] MEDS: OXYTOCIN/SODIUM CHLORIDE 500 ML IV SCH ×2 (11:09→18:15)
[2018-11-23] MEDS: BENZONATATE 100 MG CAPSULE PO PRN (13:40)
[2018-11-23] MEDS: guaiFENesin/CODEINE 5 ML UDC PO PRN (13:40)
[2018-11-23] MEDS ORDERED: PENICILLIN G POTASSIUM 2,500,000 UNIT in SODIUM CHLORIDE 0.9% 100ML 100 ML IV SCH ×4 (14:00)
[2018-11-23] MEDS ORDERED: ONDANSETRON 4 MG/2 ML VIAL IVP PRN ×2 (18:14→20:19)
[2018-11-23] MEDS ORDERED: ALBUTEROL NEB 2.5 MG/3 ML INH PRN (18:14)
--- NOTE | 2018-11-23 18:14 | PROVIDER PROGRESS NOTE ---
Labor Progress Note - Uterine Monitoring Uterine Monitoring Mode: positive: External toco Contraction Frequency (min/apart): Rare Contraction Intensity: positive: Mild to moderate Uterine Resting Tone: positive: Soft - Monitoring Monitor Mode: positive: External ultrasound Heart Rate Baseline: 140 Heart Rate Variability: positive: Moderate (6-25 bmp) Accelerations: positive: Present, 15x15 Decelerations: positive: None Strip Review: positive: Category I - Vaginal Exam Dilation (in cm): 4 Effacement (%): 70 Station: -1 Cervical Position: Midposition - Labor Progress Note Labor Progress Note/Additional Text: S: Disha is doing well; she is more bothered by her cough than by anything else. She does not really fell her uterine contractions & does not desire analgesia/anesthesia. The Robitussin AC didn't help w/ her cough much & she doesn't feel tired. The tessalon shahid she took didn't make much difference. She was vaccinated against pertussis this & doesn't report a fever. She reports frequent bronchitis in the past. O: AAOx3, NAD WA gravid female VSS EFM Bl 140bpm, +accels, no decels, mod kylie TOCO: UCs rare SVE /-1, BBOW AROM'ed for copious CAF, position LOT A: 23 y/o @ 39w1d by first trimester US, logistic IOL Cervical status favorable s/p 2 doses buccal misoprostol for ripening GBS positive s/p 2 doses PCN for prophylaxis FHTs cat I Persistent productive cough, afebrile Adequate pain control w/o analgesia/anesthesia P: 1. Flu/pertussis PCR evaluations 2. Flonase b/l 3. Continue tessalon pearls per orders 4. Continue IV PCN for GBS prophylaxis per protocol 5. Begin Pitocin infusion & titrate per protocol to achieve adequate labor pattern by tocometry 6. Reassess cervical status 2 hours s/p establishing adequate labor pattern by tocometry 7. Analgesia/anesthesia PRN per pt request 8. Reviewed plan of care w/ pt, partner & RN @ bedside; all in agreement, without concerns
[2018-11-23] MEDS: PENICILLIN G POTASSIUM 2,500,000 UNIT in SODIUM CHLORIDE 0.9% 100ML 100 ML IV SCH ×2 (18:15→23:38)
[2018-11-23] MEDS ORDERED: fent/BUPIV 2 MCG/0.125% 250 ML EP ONE (19:26)
[2018-11-23] MEDS ORDERED: LACTATED RINGERS 500 ML IV SCH (20:19)
[2018-11-23] MEDS ORDERED: METOCLOPRAMIDE 10 MG/2 ML VIAL IVP PRN (20:19)
[2018-11-23] MEDS ORDERED: ePHEDrine 50 MG/ML VIAL IVP PRN (20:19)
[2018-11-23] MEDS ORDERED: NALBUPHINE 10 MG/ML AMP IVP PRN (20:19)
[2018-11-23] MEDS ORDERED: diphenhydrAMINE INJ 50 MG/ML VIAL IVP PRN (20:19)
[2018-11-23] MEDS ORDERED: NALOXONE 0.4 MG/ML VIAL IVP PRN (20:19)
--- NOTE | 2018-11-23 20:25 | ANESTHESIA ---
Pre-Anesthesia VS, & Labs - Diagnosis Active Labor - Procedure Cont labor epidural Height 5 ft 6 in Weight (kg) 102.965 kg Body Mass Index 32.3 - NPO Other (Been taking fluids) - Is Patient ?: Yes - Lab Results Current Lab Results: Laboratory Tests 11/23/18 09:45: WBC 11.6 H, RBC 3.80 L, Hgb 11.5 L, Hct 33.5 L, MCV 88.2, MCH 30.3, MCHC 34.4, RDW 14.4, Plt Count 153, MPV 11.5 H, Neut # (Auto) 9.3 H, Lymph # (Auto) 1.7, Alcorn # (Auto) 0.5, Eos # (Auto) 0.1, Baso # (Auto) 0.0, Absolute Nucleated RBC 0.00, Nucleated RBC % 0.0 Fish Bones: 11/23/18 09:45 Home Medications and Allergies Home Medications: Ambulatory Orders Pnv No.121/Iron/Folic Acid [ Multivitamin Tablet] 1 each PO DAILY 11/23/18 Sertraline HCl 50 mg PO DAILY 11/23/18 Valacyclovir HCl [Valacyclovir] 1,000 mg PO DAILY 11/23/18 raNITIdine [Zantac] 150 mg PO DAILY 11/23/18 Active Medications Albuterol () 2.5 mg INH RTQ4H PRN PRN Reason: Wheezing Benzonatate (Tessalon) 100 mg PO TID PRN PRN Reason: Cough Last Admin: 11/23/18 13:40 Dose: 100 mg Diphenhydramine HCl (Benadryl Inj) 12.5 - 25 mg IVP Q6HR PRN PRN Reason: ITCHING Ephedrine Sulfate () 5 mg IVP Q5M PRN PRN Reason: For SBP<100;give until SBP>100 Fentanyl (Fentanyl) 50 mcg IVP Q1H PRN PRN Reason: PAIN Fluticasone Propionate (Flonase) 1 sprays GUY DAILY [facility] Guaifenesin/Codeine Phosphate (Robitussin Ac) 5 ml PO Q6HR PRN PRN Reason: Cough Last Admin: 11/23/18 13:40 Dose: 5 ml Lactated Ringer's (Lr) 1,000 mls @ 150 mls/hr IV .Q6H40M ALRA Last Admin: 11/23/18 10:11 Dose: 150 mls/hr Oxytocin/Sodium Chloride (Pitocin/Sodium Chloride) 500 mls @ 1 mls/hr IV TITR [facility]; Protocol Last Admin: 11/23/18 18:15 Dose: 1 milliunit/min, 1 mls/hr Penicillin G Potassium 2,500, (000 unit/ Sodium Chloride) 100 mls @ 200 mls/hr IV Q4H [facility] Last Admin: 11/23/18 18:15 Dose: 200 mls/hr Lactated Ringer's (Lr) 500 mls @ 999 mls/hr IV ONCE ONE Stop: 11/23/18 20:49 Metoclopramide HCl (Reglan Inj) 10 mg IVP Q6HR PRN PRN Reason: Nausea / Vomiting Misoprostol (Cytotec) 50 mcg BC Q4H [facility] Last Admin: 11/23/18 18:05 Dose: Not Given Nalbuphine HCl (Nubain) 2.5 - 5 mg IVP Q4H PRN PRN Reason: ITCHING Naloxone HCl (Narcan) 0.1 mg IVP Q2M PRN PRN Reason: RR<8 Nicotine (Nicoderm) 1 patch TOP DAILY [facility] Last Admin: 11/23/18 10:25 Dose: Not Given Ondansetron HCl (Zofran Inj) 4 mg IVP Q4HR PRN PRN Reason: Nausea / Vomiting Ondansetron HCl (Zofran Inj) 4 mg IVP Q6HR PRN PRN Reason: Nausea / Vomiting Multivit/Folic Acid/Iron (Trinatal Rx 1) 1 tab PO DAILYWM [facility] Sertraline HCl (Zoloft) 50 mg PO DAILY [facility] Sodium Chloride (Normal Saline Flush 0.9%) 10 ml IVP PRN PRN PRN Reason: NEEDED PER PROVIDER ORDERS Sodium Chloride (Normal Saline Flush 0.9%) 10 ml IVP 0100,0900,1700 [facility] Valacyclovir HCl (Valtrex) 1,000 mg PO DAILY [facility] Pnv No.121/Iron/Folic Acid [ Multivitamin Tablet] 1 each PO DAILY 11/23/18 Sertraline HCl 50 mg PO DAILY 11/23/18 Valacyclovir HCl [Valacyclovir] 1,000 mg PO DAILY 11/23/18 raNITIdine [Zantac] 150 mg PO DAILY 11/23/18 Allergies/Adverse Reactions: Allergies Allergy/AdvReac Type Severity Reaction Status Date / Time No Known Drug Allergies Allergy Verified 04/28/18 09:49 Anes History & Medical History - Anesthetic History Anesthesia Complications: reports: No previous complications Family history of Anesthesia Complications: Denies Family history of Malignant Hyperthermia: Denies - Medical History Cardiovascular: reports: None Pulmonary: reports: None Gastrointestinal: reports: None Urinary: reports: Chronic bladder infection Neuro: reports: Migraines Musculoskeletal: reports: None Endocrine/Autoimmune: reports: None Blood Disorders: reports: None Skin: reports: None Smoking Status: Former smoker - Surgical History Orthopedic: ACL reconstruction - Obstetrical History : 2 Parity: 1 Complications: positive: Other (depression, obesity, genital herpes, pyelonephritis, recurrent UTI,) Exam General: Alert, Oriented x3, Cooperative Dental: WNL Mouth Opening: Greater than 4 Fingerbreadths Neck Mobility: Normal Mallampati classification: I Thyromental Distance: greater than 6 cm Respiratory: Lungs clear Cardiovascular: Regular rate Neurological: Normal speech Mental/Cognitive Status: Alert/Oriented X3 Cognitive Status: Within normal limits Plan Anesthesia Type: Epidural Consent for Procedure(s) Verified and Reviewed: Yes Code Status: Attempt Resuscitation ASA classification: 2-Mild systemic disease Is this case an emergency?: Yes
[2018-11-23] MEDS ORDERED: ACYCLOVIR 200 MG CAPSULE PO SCH (21:00)
--- NOTE | 2018-11-24 00:59 | PROVIDER PROGRESS NOTE ---
Labor Progress Note - Uterine Monitoring Uterine Monitoring Mode: positive: External toco Contraction Frequency (min/apart): difficult to assess w/ external toco: UCs q3- 8 minutes; IUPC placed Contraction Intensity: positive: Strong Uterine Resting Tone: positive: Soft - Monitoring Monitor Mode: positive: Spiral electrode Heart Rate Baseline: 145 Heart Rate Variability: positive: Moderate (6-25 bmp) Accelerations: positive: Present, 15x15 Decelerations: positive: Early, Variable, Intermittent (<50% x20 min) Strip Review: positive: Category II - Vaginal Exam Dilation (in cm): 8 Effacement (%): 80 Station: -1 Cervical Position: Midposition - Labor Progress Note Labor Progress Note/Additional Text: S: Disha is experiencing suboptimal relief w/ her epidural in place. She is feeling lots of pressure & significant discomfort w/ her uterine contractions. Naty is present at the bedside & is sleeping. She has two friends in the room w/ her & they are involved & supportive O: AAOx3, NAD WA gravid female, VSS EFM: BL 145bpm, +accels, +variable decels to alessandro in 110s, occ late decels to alessandro of the same w/ spontaneous return to baseline <60 seconds, mod variability, FSE placed to ensure accurate assessment of FHTs TOCO: erratic contraction pattern, difficult to discern, Pitocin infusion had been discontinued because of difficulty w/ tracing, IUPC placed, baseline 0mmHg, peak <25mmHg, contractions q2-3 minutes w/ Pitocin infusion resumed @ 4mU/min SVE: /-1 A: 23 y/o @ 39w2d by first trimester US, logistic induction of labor per pt request s/p 2 doses misoprostol, AROM x7 hours, afebrile, slow titration of Pitocin to maximum infusion rate of 4mU/min Progressive cervical change Ongoing leakage of CAF FHTs cat II w/o s/sx hypoxemia GBS pos s/p 4 doses IV PCN for IPAP Inadequate pain control w/ epidural anesthesia P: 1. Anesthesia notified, to re-bolus epidural 2. Continue to titrate Pitocin per IUPC to achieve adequate labor pattern 3. Reassess cervical status x2 hours or PRN 4. Continue GBS prophylaxis w/ IV PCN per protocol 5. Anticipate 2nd stage shortly
[2018-11-24] MEDS ORDERED: ROPIVACAINE 0.2% PF 20 ML AMPULE ONE (01:04)
[2018-11-24] MEDS ORDERED: OXYTOCIN 10 UNIT/ML VIAL IM ONE (01:19)
[2018-11-24] MEDS ORDERED: WITCH HAZEL/GLYCERIN 1 EACH MED..PAD TOP PRN (01:26)
[2018-11-24] MEDS ORDERED: MAGNESIUM HYDROXIDE 2,400 MG/30 ML UDC PO PRN (01:26)
[2018-11-24] MEDS ORDERED: HYDROCORTISONE 1% CREAM 28 GM TUBE PR PRN (01:26)
--- NOTE | 2018-11-24 01:26 | DELIVERY NOTE ---
Delivery Note - Labor Labor: positive: Induced by oxytocin - Infant Delivery Method Delivery Method: positive: Spontaneous vaginal delivery - Cervical Ripening Method Cervical Ripening Method: positive: Misoprostil - Presentation Presentation: positive: Vertex, AMANDA - left occiput anterior - Nuchal Cord Nuchal Cord: positive: Present (tight x3, non-reducible, shoulders delivered then body somersaulted through cord x3) - Anesthetic Anesthetic Type: - Amniotic Fluid Description Amniotic Fluid Description: positive: Clear - Episiotomy Type Episiotomy Type: positive: None - Laceration Laceration: positive: None - Delivery Outcome Delivery Outcome: positive: Livebirth - [place] : positive: Placed in direct skin contact with mother, Stimulated, Warmed, [place] used, Warmer used [place] sex: positive: Female - Cord Cord: positive: 3 vessels - Placenta Placenta: positive: Intact, Spontaneous - Estimated Blood Loss Estimated Blood Loss (in cc): 150 - Post Delivery Events Post Delivery Events: positive: No post delivery events - Delivery Comments (Free Text/Narrative) Delivery Comments (Free Text/Narrative): Disha Henley is a 23 y/o [id number] who presented for induction of labor for logistic reasons involving her mother's presence to assist her w/ infant & toddler s/p delivery. She received 2 doses of misoprostol buccally & underwent AROM for CAF @ 1745, for a total ruptured duration of 7.5 hours, afebrile t/o. GBS positive, received 4 total doses of IV PCN for prophylaxis, afebrile t/o. Epidural placed for discomfort. IUPC & FSE placed to allow accurate assessment of both FHTs & uterine contractions. Pitocin infusion slowly titrated over a period of 7 hours to a maximum infusion rate of 4mU/min. Anterior lip reduced w/ pt pushing to complete dilatation @ 0106, for a total first stage duration of 6.5 hours, viable female in JULIETA position w/ tight nuchal x3 @ 0107, for a total 2nd stage duration of 1 minute. Shoulders delivered & then body somersaulted through cord x3, placed to maternal abd for drying/stim. Infant vigorous w/ spontaneous, lusty cry. Apgars 8/9. Delayed cord clamping until cessation of pulsation, then cord clamped x2 by CNM, cut by FOB; 3VC noted; cord blood obtained; cord segment obtained for gases secondary to cat II tracing in the late 1st stage. Active management of the third stage delayed secondary to IV infiltration, 10 units IM pitocin x1 administered. Placenta del spontaneously & intact, Jeff, @ 0110, for a total 3rd stage duration of 3 min. Vagina & perineum inspected & found to be intact; FF @ U. EBL 150mL. Mother & infant stable, plans to breastfeed. Weight pending.
[2018-11-24] MEDS ORDERED: OXYTOCIN 10 UNIT/ML VIAL ONE (03:53)
[2018-11-24] MEDS: guaiFENesin/CODEINE 5 ML UDC PO PRN ×2 (06:28→14:37)
[2018-11-24] MEDS: BENZONATATE 100 MG CAPSULE PO PRN ×2 (06:28→14:37)
[2018-11-24] MEDS: ACETAMINOPHEN 500 MG TABLET PO SCH ×3 (06:55→14:37)
[2018-11-24] MEDS: IBUPROFEN 800 MG TABLET PO SCH ×3 (06:55→15:59)
[2018-11-24] MEDS ORDERED: SODIUM CHLORIDE 0.9% 500 ML IV ONE (08:16)
[2018-11-24] MEDS: FLUTICASONE NASAL SPRAY NAS SCH ×2 (08:19→09:02)
[2018-11-24] MEDS: SODIUM CHLORIDE FLUSH 0.9% 10 ML SYRINGE IVP SCH ×4 (08:19→16:44)
[2018-11-24] MEDS: SERTRALINE 50 MG TABLET PO SCH (09:03)
[2018-11-24] MEDS: valACYclovir 500 MG TABLET PO SCH (09:03)
[2018-11-24] MEDS: DOCUSATE SODIUM 100 MG CAPSULE PO SCH ×2 (09:03→20:13)
[2018-11-24] MEDS: PRENATAL VITAMIN TABLET PO SCH (09:03)
[2018-11-24] MEDS: NICOTINE 14 MG PATCH TOP SCH (09:51)
[2018-11-24] MEDS: LACTATED RINGERS 1,000 ML IV SCH ×4 (16:44→16:47)
[2018-11-24] MEDS: PENICILLIN G POTASSIUM 2,500,000 UNIT in SODIUM CHLORIDE 0.9% 100ML 100 ML IV SCH ×4 (16:44→16:47)
[2018-11-24] MEDS: miSOPROStol 100 MCG TABLET BC SCH ×4 (16:44→16:47)
[2018-11-25] MEDS: ACETAMINOPHEN 500 MG TABLET PO SCH ×2 (00:43→08:22)
[2018-11-25] MEDS: IBUPROFEN 800 MG TABLET PO SCH (00:44)
--- NOTE | 2018-11-25 06:16 | Discharge Plan ---
Discharge Plan Disposition: 01 Home, Self Care Condition: Good Diet: Regular Activity Restrictions: pelvic rest x6 weeks Shower Restrictions: No Driving Restrictions: No Weight Bearing: Full Weight Instruction Topics: Vaginal After, Breastfeed How To, Exercises Kegel No Smoking: If you smoke, Please STOP! Call for help. Follow-up with: Dayan Giang DNP [Primary Care Provider] - Gary Real, FADI, LEONCIO [Provider Admit Priv/Credential] -
--- NOTE | 2018-11-25 07:39 | DISCHARGE SUMMARY ---
"Discharge Summary Admit Date: 11/23/18 Discharge Date: 11/25/18 Discharging Provider: TIMOTHY Code Status: Attempt Resuscitation Condition at Discharge: Good Discharge Disposition: 01 Home, Self Care Discharge Facility Name: [facility] - DIAGNOSES Admission Diagnoses: 39 weeks' gestation Discharge Diagnoses with Status of Each Condition: - HPI History of Present Illness: Disha Henley is a 23 y/o who presented for logistic induction of labor @ 39w1d to ensure her mother's presence for delivery. She received 2 doses of buccal misoprostol w/ good cervical ripening effect & then underwent AROM & Pitocin infusion to maximum infusion rate of 4mU/min. She received epidural anesthesia for pain management. She progressed to complete dilatation & deliver ed a viable female vaginally over an intact perineum w/o complication. - CONSULTS | PROCEDURES Consultations: anesthesia Procedures: misoprostol cervical ripening GBS prophylaxis w/ IV PCN AROM Pitocin infusion Epidural placement FSE/IUPC placement - HOSPITAL COURSE Hospital Course: , Disha is doing well. She is ambulating & voiding w/o difficulty or discomfort. She denies incontinence. She is passing flatus & tolerating a regular diet. Her cough persists. She is exclusively w/o any difficulty & reports a previously successful experience. Her pain is well-controlled w/ non-opioid analgesia. She reports minimal lochia rubra. She has a hx of pp depression s/p her last delivery & will increase her sertraline to 100mg po daily. She will be seen x1 week for evaluation of mood status & is well-aware of changes; she has a hx of needing additional mood stabilization w/ risperidone & is hoping to resume. She is not planning to retu rn to work. Her mother will be present for the next 2 weeks to assist w/ & toddler. She denies any safety risk for herself or for her children. She is able to fully articulate pp warning s/sx, including pp depression s/sx, and pp aftercare instructions. She is ready to leave the hospital. - ALLERGIES Allergies/Adverse Reactions: Allergies Allergy/AdvReac Type Severity Reaction Status Date / Time No Known Drug Allergies Allergy Verified 04/28/18 09:49 - MEDICATIONS Home Medications: Ambulatory Orders Medication Instructions Recorded Confirmed Pnv No.121/Iron/Folic Acid 1 each PO DAILY 11/23/18 11/23/18 [ Multivitamin Tablet] Sertraline HCl 50 mg PO DAILY 11/23/18 11/23/18 Valacyclovir HCl [Valacyclovir] 1,000 mg PO DAILY 11/23/18 11/23/18 raNITIdine [Zantac] 150 mg PO DAILY 11/23/18 11/23/18 Ibuprofen [Motrin] 800 mg PO Q6H tablet 11/25/18 Vitamin [Trinatal Rx 1] 1 tab PO DAILYWM tablet 11/25/18 Sertraline [Zoloft] 50 mg PO DAILY tablet 11/25/18 - PHYSICAL EXAM AT DISCHARGE General Appearance: positive: No acute distress, Alert Eyes Bilateral: positive: Normal inspection, PERRL, EOMI Respiratory: positive: Chest non-tender, No respiratory distress, Breath sounds nml Cardiovascular: positive: Regular rate & rhythm, No murmur, No gallop Abdomen: positive: Non-tender, No distention, Other (FF u-1) Skin: positive: Color nml, No rash, Warm Extremities: positive: Non-tender, Full ROM, Nml appearance, No pedal edema. negative: Calf tenderness, Benson's sign/cords Neurologic/Psychiatric: positive: Oriented x3, CN's nml (2-12), Motor nml, Sensation nml, Mood/affect nml - LABS Result Diagrams: 11/23/18 09:45 - FOLLOW UP Follow Up: x1 week in outpt clinic, earlier PRN - TIME SPENT Time Spent in Discharge (Minutes): 20"
[2018-11-25] MEDS: guaiFENesin/CODEINE 5 ML UDC PO PRN (08:22)
[2018-11-25] MEDS: SERTRALINE 50 MG TABLET PO SCH (08:23)
[2018-11-25] MEDS: valACYclovir 500 MG TABLET PO SCH (08:23)
[2018-11-25] MEDS: PRENATAL VITAMIN TABLET PO SCH (08:24)
[2018-11-25] MEDS: DOCUSATE SODIUM 100 MG CAPSULE PO SCH (08:25)
[2018-11-25] MEDS: BENZONATATE 100 MG CAPSULE PO PRN (08:25)
[2018-11-25 11:53] VITALS: BP 119/81
--- NOTE | 2018-11-25 11:58 | Labor Flowsheet ---
Labor Flowsheet Datetime Report Generated by CPN: 11/25/2018 11:58 Datetime: 11/25/2018 08:25 Pulse: 85 SpO2 (%): 99 LaborFlag: Labor Datetime: 11/25/2018 08:24 VITAL SIGNS NBP Sys/Kelly/Mean (mmHg): 119 : 81 : 90 Datetime: 11/24/2018 03:01 Membranes Ruptured Date/Time: 11/23/2018 17:57 Amniotic Fluid Odor: None Datetime: 11/24/2018 01:13 Medication Comments: 10mg Oxytocin IM administered in L thigh Datetime: 11/24/2018 01:04 Exam by: uJlee Real CNM Datetime: 11/24/2018 01:03 STAGE 2 Pushing: Coached on Pushing Pushing Position: Pushing with Contractions Pushing Progress: Descent with Pushing Datetime: 11/24/2018 01:01 Vaginal Exam Comments: anterior lip Datetime: 11/24/2018 01:00 UTERINE ACTIVITY Monitor Mode: External Monitor Interventions for UA: [place] Adjusted Frequency (min): 1.5-5 Quality: Moderate Duration (sec): 30-90 Pattern: Normal: <= 5 Contractions in 10 Minutes Resting Tone (Palpate): Relaxed ASSESSMENT A Monitor Mode: External US FHR Baseline Rate : 145 Variability: Moderate 6-25 bpm Accelerations: 15X15 Decelerations: Late; Variable Category: Category II Datetime: 11/24/2018 00:59 Stage of : Labor I/O Interventions: [place] Discontinued COMMUNICATION Communication: Provider at Bedside Notification Reason: Pain Communication Comments: MANAGER JAVA Parr at bedside Datetime: 11/24/2018 00:52 MEDICATIONS Pitocin (milliunits): Started @ (Annotations: 4mu/min per provider) Datetime: 11/24/2018 00:46 Provider Notified (Name): MANAGER JAVA Parr Datetime: 11/24/2018 00:39 VAGINAL EXAM Dilatation (cm): 7.0 Effacement (%): 80 Station: -1 Datetime: 11/24/2018 00:31 Actions for Decelerations: Oxygen Applied Oxygen Amount (LPM): 10 Datetime: 11/24/2018 00:30 Monitor Interventions for FHR: Ultrasound Adjusted PATIENT CARE IV/Blood Work: IV Bolus Started Patient Care Comments: 500ml Datetime: 11/24/2018 00:24 Patient Position/Activity: Left Tilt Datetime: 11/24/2018 00:00 Contraction Comments: toco not picking up pts ctx despite readjustments. Comments: decel seen @ 2347 lasting approximately 60 seconds and returning to baseline. Interrupted strip Anesthesia Level Check: T8- Ribs Datetime: 11/23/2018 22:36 Provider Reviewed Strip: No Datetime: 11/23/2018 22:30 Respirations: 18 Temperature (C): 36.6 Temperature Route: Oral Datetime: 11/23/2018 21:40 Vital Sign Comments: mild wheezing noted R base Datetime: 11/23/2018 21:28 Anesthesia Comments: Pt c/o having a "funny feeling" in her chest/breasts. Dermatomes assessed and anesthesia level found to be at T5. HOB elevated. Patient in no respiratory distress at this time. Wi notify JESSICA Parr and continue to closely monitor patient. Datetime: 11/23/2018 20:20 PAIN Pain Presence: None/Denies MATERNAL ASSESSMENT Level of Consciousness: Fully Conscious Headache: Denies Breath Sounds, Left: Clear and Equal Breath Sounds, Right: Clear and Equal Nausea/Vomiting: Denies RUQ Epigastric Pain: Denies TEACHING Instructional Method: Verbal Plan of Care: Plan of Care Discussed; Induction Unit Routine: Unit Personnel; Safety/Fall Risk Prevention Labor/Induction: Induction Pain Management: Epidural Medications: Antibiotics Datetime: 11/23/2018 20:03 Epidural Procedure Other: Pump Started Datetime: 11/23/2018 19:58 Epidural Procedure: Loading Dose Datetime: 11/23/2018 19:37 PROCEDURE TIME OUT Procedure Verify: Correct Side and Site are Marked; Correct Patient Position ANESTHESIA Anesthesia Plans: Epidural Epidural Positioning: Sitting Datetime: 11/23/2018 18:49 Hygiene: Underpad Changed; Peripad Changed; Linens Changed Datetime: 11/23/2018 18:27 Strip Reviewed by: CNM Milagrosa Datetime: 11/23/2018 18:20 Pitocin Checklist: At Least 1 Acceleration of 15 bpm x 15 Seconds in 30 Minutes or Adequate Variabi lity; No More than 1 Late Deceleration Occurred in Past 30 Minutes; No More than 2 Variable Decelerat ions > 60 Seconds in Duration and decreasing >60 bpm in 30 minutes; No More than 5 Uterine Contractio ns in 10 Minutes for any 20 Minute Interval; Uterus Palpates Soft between Contractions Antibiotics: Penicillin IV (Units) @ 2.5 Datetime: 11/23/2018 17:57 Membrane Status: Ruptured Membranes Rupture Method: Artificial Amniotic Fluid Color: Clear Amniotic Fluid Amount: Large Datetime: 11/23/2018 15:06 Pain Type: Cramping Pain Location: Abdomen Pain Assessment Comments: 2/10 Datetime: 11/23/2018 14:17 Cervical Ripening Agents: Cytotec @
[2018-11-25 16:17] LABS: B. PARAPERTUSSIS DNA NOT DETECTED; B. PERTUSSIS DNA NOT DETECTED; SOURCE THROAT
== END 2018-11-25 10:35 | disposition home or self-care (01) | DRG 807 ==
LOC: WFO 08:18 → FBP 08:24 → WFO 13:58
PROVIDERS: ADMIT Registered Nurse; ATTEND Registered Nurse
PROC: 10E0XZZ Delivery of Products of Conception, External Approach (ICD-10-PCS; principal; 2018-11-23)
PROC: 3E0P7VZ Introduction of Hormone into Female Reproductive, Via Natural or Artificial Opening (ICD-10-PCS; 2018-11-23)
PROC: 10907ZC Drainage of Amniotic Fluid, Therapeutic from Products of Conception, Via Natural or Artificial Opening (ICD-10-PCS; 2018-11-23)
PROC: 3E033VJ Introduction of Other Hormone into Peripheral Vein, Percutaneous Approach (ICD-10-PCS; 2018-11-23)
DX: O69.1XX0 Labor and delivery complicated by cord around neck, with compression, not applicable or unspecified (principal); Z37.0 Single live birth; Z3A.39 39 weeks gestation of pregnancy; O99.344 Other mental disorders complicating childbirth; F32.9 Major depressive disorder, single episode, unspecified; F41.9 Anxiety disorder, unspecified; Z87.440 Personal history of urinary (tract) infections; O99.824 Streptococcus B carrier state complicating childbirth; Z87.891 Personal history of nicotine dependence; O99.214 Obesity complicating childbirth; E66.9 Obesity, unspecified; R05 Cough; O99.513 Diseases of the respiratory system complicating pregnancy, third trimester
CPT/HCPCS: 85025; 87275; 87276; 87801

== ENCOUNTER 2019-01-15 13:12 | Emergency (ER) | payer MEDICAID ==
[2019-01-15 13:18] VITALS: BP 102/83
== END 2019-01-15 14:00 | disposition left against medical advice (07) ==
LOC: ED 13:12
DX: M79.671 Pain in right foot (principal); M25.571 Pain in right ankle and joints of right foot; Z53.21 Procedure and treatment not carried out due to patient leaving prior to being seen by health care provider

== ENCOUNTER 2019-04-22 11:33 | Emergency (ER) | payer MEDICAID ==
[2019-04-22 11:53] VITALS: BP 125/75
[2019-04-22] MEDS ORDERED: DEXAMETHASONE 10 MG/ML VIAL IM STA (12:46)
[2019-04-22] MEDS ORDERED: KETOROLAC 60 MG/2 ML VIAL IM STA (12:46)
--- NOTE | 2019-04-22 12:46 | ED Physician Documentation ---
PD HPI BACK PAIN - Stated complaint Stated Complaint: HIP PX - Chief complaint Chief Complaint: Back Pain - History obtained from History obtained from: Patient - History of Present Illness Timing - onset: Today Timing - duration: Hours (3) Timing - details: Abrupt onset Pain level max: 9 Pain level now: 4 Location: Right Quality: Pain, Spasm, Similar to prior episodes Associated symptoms: No: Fever, Weakness, Numbness, Incontinent of urine, Unable to urinate, Hematuria, Incontinent of stool Improves with: Rest Worsened by: Movement Contributing factors: No: Lifting, Twisting, Trauma, Anticoagulated, Cancer, IVDA, Out of meds Similar symptoms before: Diagnosis (sciatica) Review of Systems Constitutional: denies: Fever, Chills GI: denies: Nausea, Vomiting, Diarrhea : denies: Dysuria, Frequency, Hesitancy, Unable to Void, Incontinent, Now EGA Skin: denies: Rash Musculoskeletal: denies: Neck pain Neurologic: denies: Focal weakness, Numbness PD PAST MEDICAL HISTORY - Past Medical History Past Medical History: No Cardiovascular: None Respiratory: None Neuro: Migraines Endocrine/Autoimmune: None GI: None 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 : Chronic bladder infection HEENT: None Psych: Depression, Anxiety Musculoskeletal: None Derm: None - Past Surgical History Past Surgical History: Yes Ortho: ACL reconstruction - Present Medications Home Medications: Ambulatory Orders Medication Instructions Recorded Confirmed Pnv No.121/Iron/Folic Acid 1 each PO DAILY 11/23/18 11/23/18 [ Multivitamin Tablet] Sertraline HCl 50 mg PO DAILY 11/23/18 11/23/18 Valacyclovir HCl [Valacyclovir] 1,000 mg PO DAILY 11/23/18 11/23/18 raNITIdine [Zantac] 150 mg PO DAILY 11/23/18 11/23/18 Ibuprofen [Motrin] 800 mg PO Q6H tablet 11/25/18 Vitamin [Trinatal Rx 1] 1 tab PO DAILYWM tablet 11/25/18 Sertraline [Zoloft] 50 mg PO DAILY tablet 11/25/18 Meloxicam [Mobic] 15 mg PO DAILY PRN #20 tablet 04/22/19 predniSONE [Prednisone] 40 mg PO DAILY #10 tablet 04/22/19 - Allergies Allergies/Adverse Reactions: Allergies Allergy/AdvReac Type Severity Reaction Status Date / Time No Known Drug Allergies Allergy Verified 04/22/19 11:53 - Social History Does the pt smoke?: Yes Smoking Status: Current every day smoker Does the pt drink ETOH?: No Does the pt have substance abuse?: No - Immunizations Immunizations are current?: Yes - POLST Patient has POLST: No PD ED PE NORMAL - Vitals Vital signs reviewed: Yes - General General: Alert and oriented X 3, No acute distress, Well developed/nourished - HEENT HEENT: Moist mucous membranes - Neck Neck: Supple, no meningeal sign - Cardiac Cardiac: RRR - Respiratory Respiratory: No respiratory distress, Clear bilaterally - Abdomen Abdomen: Soft, Non tender, Non distended - Back Back: No spinal TTP, Other (no step off or deformity. no midline TTP. paraspinal TTP R>L. ) - Derm Derm: Warm and dry - Extremities Extremities: No calf tenderness / cord, Other (Normal bilateral lower extremity patellar and ankle jerk reflexes. Normal great toe extension bilaterally. no saddle anesthesia) - Neuro Neuro: Alert and oriented X 3, No motor deficit, No sensory deficit - Psych Psych: Normal mood, Normal affect Results - Vitals Vitals: Vital Signs - 24 hr 04/22/19 11:52 Temperature 36.5 C Heart Rate 68 Respiratory 20 Rate Blood Pressure 125/75 O2 Saturation 99 Oxygen O2 Source Room air PD MEDICAL DECISION MAKING - ED course Complexity details: reviewed results, re-evaluated patient, considered differential (No cauda equina, no spinal epidural abscess, no fracture, no aortic dissection or evidence of aneursym rupture), d/w patient ED course: 24-year-old female with sciatica. Given Toradol and dexamethasone here. Will place on meloxicam and prednisone for home. We will follow-up with her doctor. No evidence of cauda equina or epidural abscess. Abdomen is soft, nontender nondistended. No vaginal bleeding or discharge. Patient counseled regarding signs and symptoms for which I believe and urgent re-evaluation would be necessary. Patient with good understanding of and agreement to plan and is comfortable going home at this time This document was made in part using voice recognition software. While efforts are made to proofread this document, sound alike and grammatical errors may occur. Departure - Departure Disposition: 01 Home, Self Care Clinical Impression: Sciatica Qualifiers: Laterality: right Qualified Code(s): M54.31 - Sciatica, right side Condition: Good Instructions: ED Sciatica Follow-Up: your,doctor in 1 week [Other] Prescriptions: Meloxicam [Mobic] 15 mg PO DAILY PRN #20 tablet PRN Reason: pain predniSONE [Prednisone] 40 mg PO DAILY #10 tablet Comments: Use the medications as prescribed. Return if you worsen. Follow-up with your doctor for further care.
== END 2019-04-22 13:23 | disposition home or self-care (01) ==
LOC: ED 11:33
DX: M54.31 Sciatica, right side (principal); F17.200 Nicotine dependence, unspecified, uncomplicated
CPT/HCPCS: 96372; 99283

== ENCOUNTER 2019-06-21 08:08 | Emergency (ER) | payer MEDICAID ==
[2019-06-21 08:13] VITALS: BP 121/75
--- NOTE | 2019-06-21 08:18 | ED Physician Documentation ---
PD HPI URI - Stated complaint Stated Complaint: SORE THROAT - Chief complaint Chief Complaint: Heent - History obtained from History obtained from: Patient - History of Present Illness Timing - onset: Yesterday Timing duration: Days (2) Timing details: Abrupt onset, Still present Associated symptoms: Fever, Chills, Sore throat, Swollen nodes. 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 : Chronic bladder infection HEENT: None Psych: Depression, Anxiety Musculoskeletal: None Derm: None - Past Surgical History Past Surgical History: Yes Ortho: ACL reconstruction - Present Medications Home Medications: Ambulatory Orders Medication Instructions Recorded Confirmed Cephalexin [Keflex] 500 mg PO TID #21 capsule 06/21/19 RX: Naproxen 500 mg PO BID #15 tablet 06/21/19 - Allergies Allergies/Adverse Reactions: Allergies Allergy/AdvReac Type Severity Reaction Status Date / Time No Known Drug Allergies Allergy Verified 06/21/19 08:13 - Social History Does the pt smoke?: Yes Smoking Status: Current every day smoker Does the pt drink ETOH?: No Does the pt have substance abuse?: No - Immunizations Immunizations are current?: Yes - POLST Patient has POLST: No PD ED PE NORMAL - Vitals Vital signs reviewed: Yes - General General: Alert and oriented X 3, No acute distress, Well developed/nourished - HEENT HEENT: No: Pharynx benign (tonsils red with exudate and some swelling. No peritonsillar swelling. ) - Neck Neck: Supple, no meningeal sign, Other (Anterior adenopathy bilaterally which is tender.) - Cardiac Cardiac: RRR, No murmur - Respiratory Respiratory: Clear bilaterally - Abdomen Abdomen: Soft, Non tender - Derm Derm: Normal color, Warm and dry, No rash - Neuro Neuro: Alert and oriented X 3, No motor deficit, Normal speech Results - Vitals Vitals: Vital Signs - 24 hr 06/21/19 08:11 Temperature 36.3 C L Heart Rate 82 Respiratory 18 Rate Blood Pressure 121/75 O2 Saturation 99 Oxygen O2 Source Room air PD MEDICAL DECISION MAKING - ED course Complexity details: considered differential (Clinic in clinically suspicious for strep pharyngitis.), d/w patient Departure - Departure Disposition: 01 Home, Self Care Clinical Impression: Acute pharyngitis Qualifiers: Pharyngitis/tonsillitis etiology: streptococcus Qualified Code(s): J02.0 - Streptococcal pharyngitis Condition: Stable Record reviewed to determine appropriate education?: Yes Instructions: ED Strep Pharyngitis Poss Follow-Up: Jose Angel Lai PA-C [Primary Care Provider] - Prescriptions: Cephalexin [Keflex] 500 mg PO TID #21 capsule RX: Naproxen 500 mg PO BID #15 tablet Comments: Stay well hydrated. Naproxen twice daily for inflammation. Keflex antibiotic as directed. Discharge Date/Time: 06/21/19 08:59
[2019-06-21] MEDS ORDERED: cephALEXin 250 MG CAPSULE PO STA (08:32)
[2019-06-21] MEDS ORDERED: DEXAMETHASONE 10 MG/ML VIAL PO STA (08:32)
[2019-06-21] MEDS ORDERED: IBUPROFEN 600 MG TABLET PO STA (08:32)
[2019-06-21] MEDS ORDERED: CHERRY SYRUP 10 ML UDC PO ONE (08:32)
== END 2019-06-21 08:59 | disposition home or self-care (01) ==
LOC: ED 08:08
DX: J02.0 Streptococcal pharyngitis (principal); F17.200 Nicotine dependence, unspecified, uncomplicated
CPT/HCPCS: 99283; 99284; A9270; 87430

== ENCOUNTER 2019-09-10 07:00 | Outpatient (CLI) | payer MEDICAID ==
[2019-09-10 18:32] LABS: BILIRUBIN,URINE NEGATIVE (NEGATIVE); GLUCOSE, URINE (UA) NEGATIVE (NEGATIVE); KETONES,URINE (UA) NEGATIVE (NEGATIVE); LEUKOCYTE ESTERASE, URINE NEGATIVE (NEGATIVE); NITRITE,URINE NEGATIVE (NEGATIVE); OCCULT BLOOD,URINE NEGATIVE (NEGATIVE); PROTEIN,URINE NEGATIVE (NEGATIVE); UROBILINOGEN,URINE 0.2 (NORMAL) E.U./dL (NORMAL)
[2019-09-10 18:37] LABS: CLARITY,URINE CLEAR (CLEAR)
== END 2019-09-10 23:59 | disposition home or self-care (01) ==
LOC: LAB.R 07:00
PROVIDERS: ATTEND Physician Assistant Medical
DX: R10.30 Lower abdominal pain, unspecified (principal)
CPT/HCPCS: 81001; 81003; 87086

== ENCOUNTER 2019-12-02 21:43 | Emergency (ER) | payer MEDICAID ==
[2019-12-02 21:57] VITALS: BP 116/81
[2019-12-02 23:10] LABS: BILIRUBIN,URINE NEGATIVE (NEGATIVE); CLARITY,URINE CLEAR (CLEAR); GLUCOSE, URINE (UA) NEGATIVE (NEGATIVE); KETONES,URINE (UA) NEGATIVE (NEGATIVE); LEUKOCYTE ESTERASE, URINE NEGATIVE (NEGATIVE); NITRITE,URINE NEGATIVE (NEGATIVE); OCCULT BLOOD,URINE NEGATIVE (NEGATIVE); PH,URINE 8.5 PH (5.0-7.5); PROTEIN,URINE NEGATIVE (NEGATIVE); UROBILINOGEN,URINE 0.2 (NORMAL) E.U./dL (NORMAL)
--- NOTE | 2019-12-02 23:10 | XRAY Report ---
Reason: cough Procedure Date: 12/02/2019 Accession Number: [id number] / [id number] Procedure: XR - Chest 2 View X-Ray CPT Code: 81854 Final Report FULL RESULT: EXAM: CHEST RADIOGRAPHY. EXAM DATE: 12/02/2019 10:55 PM. CLINICAL HISTORY: Cough. COMPARISON: XR RIBS UNILAT W/ PA CHEST MIN 3 VIEWS 03/09/2012 6:04 PM. TECHNIQUE: 2 views. FINDINGS: Lungs/Pleura: No focal opacities evident. No pleural effusion. No definite pneumothorax. Right apical linear density may be external to the patient or scar and not typical appearance of a pneumothorax. Normal volumes. Mediastinum: Heart and mediastinal contours are unremarkable. Other: Old right rib fractures. IMPRESSION: Negative 2-view chest radiography. RADIA
[2019-12-02 23:12] LABS: HCG UR QUAL NEGATIVE
== END 2019-12-02 23:41 | disposition left against medical advice (07) ==
LOC: ED 21:43
DX: Z53.21 Procedure and treatment not carried out due to patient leaving prior to being seen by health care provider (principal)
CPT/HCPCS: 71046; 81001; 81003; 81025; 87086

== ENCOUNTER 2020-03-26 11:14 | Outpatient (CLI) | payer MEDICAID ==
--- NOTE | 2020-03-26 13:40 | XRAY Report ---
Reason: NECK PAIN Procedure Date: 03/26/2020 Accession Number: [id number] / [id number] Procedure: XR - Cervical Spine w/Flex/Ext CPT Code: Final Report FULL RESULT: PROCEDURE: Cervical Spine w/Flex/Ext INDICATIONS: NECK PAIN TECHNIQUE: 5 views of the cervical spine were acquired. COMPARISON: None. FINDINGS: Bones: No fractures or dislocations to the T1 level. No suspicious bony lesions. There is normal range of motion between flexion and extension, with preserved normal bony alignment. Soft tissues: Prevertebral soft tissues are normal in thickness. IMPRESSION: Normal range of motion, no sign of degenerative disc disease or prior trauma. Note is made of what appears to be a normal anatomic variant fusion or near fusion between the inferior endplate of C2 and the upper endplate of C3. This can increase the likelihood of greater degenerative disc disease at the next adjacent normal disc level, C3-4. Minimal disc height reduction is noted anteriorly at that level. Reviewed by: Danny Bolanos MD on 03/26/2020 1:38 PM PDT Approved by: Danny Bolanso MD on 03/26/2020 1:38 PM PDT Station ID: [id number]
== END 2020-03-26 11:15 | disposition home or self-care (01) ==
LOC: DI 11:14
PROVIDERS: ATTEND Nurse Practitioner Family
DX: M54.2 Cervicalgia (principal)
CPT/HCPCS: 72052

== ENCOUNTER 2020-08-08 12:48 | Emergency (ER) | payer MEDICAID ==
[2020-08-08 13:11] VITALS: BP 136/82
[2020-08-08 14:24] LABS: BASOPHILS % (AUTO) 0.4 %; EOSINOPHILS # (AUTO) 0.2 10^3/uL (0.0-0.7); EOSINOPHILS % (AUTO) 2.9 %; HGB - HEMOGLOBIN 13.4 g/dL (12.0-16.0); LYMPHOCYTES # (AUTO) 1.9 10^3/uL (1.5-3.5); LYMPHOCYTES % (AUTO) 24.5 %; MEAN CORPUSCULAR HEMOGLOBIN 32.4 pg (27.0-31.0); MEAN CORPUSCULAR HGB CONC 34.2 g/dL (32.0-36.0); MEAN CORPUSCULAR VOLUME 94.9 fL (81.0-99.0); MEAN PLATELET VOLUME 12.3 fL (7.9-10.8); MONOCYTES # (AUTO) 0.5 10^3/uL (0.0-1.0); MONOCYTES % (AUTO) 6.5 %; NEUTROPHILS # (AUTO) 5.1 10^3/uL (1.5-6.6); NEUTROPHILS % (AUTO) 65.3 %; PLT - PLATELET COUNT 199 10^3/uL (130-450); RED BLOOD COUNT 4.13 10^6/uL (4.20-5.40); RED CELL DISTRIBUTION WIDTH 11.7 % (12.0-15.0); WHITE BLOOD COUNT 7.8 x10^3/uL (4.8-10.8)
[2020-08-08 14:39] LABS: ALBUMIN 4.1 g/dL (3.2-5.5); ALBUMIN/GLOBULIN RATIO 1.3 (1.0-2.2); BILIRUBIN,TOTAL 0.3 mg/dL (0.2-1.0); CALCIUM 9.1 mg/dL (8.5-10.3); CREATININE 0.7 mg/dL (0.4-1.0); TOTAL PROTEIN 7.3 g/dL (6.7-8.2)
== END 2020-08-08 15:02 | disposition left against medical advice (07) ==
LOC: ED 12:48
DX: Z53.21 Procedure and treatment not carried out due to patient leaving prior to being seen by health care provider (principal)
CPT/HCPCS: 36415; 80053; 83690; 85025; 99283

== ENCOUNTER 2020-08-09 11:10 | Outpatient (CLI) | payer MEDICAID ==
--- NOTE | 2020-08-09 17:04 | Ultrasound Report ---
PROCEDURE: Pelvic w/Transvaginal INDICATIONS: ABDOMINAL CRAMPS TECHNIQUE: Real-time scanning was performed of the pelvic organs, with image documentation. Additional endovagi nal scanning was necessary due to incomplete visualization of the adnexal and endometrial structures by transabdominal scanning. COMPARISON: No prior nonobstetric examinations are available for review at the time of this dictatio n. FINDINGS: Transabdominal scanning: Incidental note is made of an apparent bilateral double renal collecting sy stem of each kidney. At the inferior pole of the left kidney, there is caliectasis, which improves po st void. No pathologic free abdominal or pelvic fluid. Endovaginal scanning: Uterus: Uterus is normal in size at 8.8 x 4.5 x 6.2 cm. The endometrium measures 8 mm in combined t hickness. A mild amount of free fluid can be seen along the endometrial stripe. An IUD is seen at th e expected location. Ovaries: The right ovary measures 6.8 x 5.5 x 6.4 cm and demonstrates a complex cyst within it that measures 6.5 x 5.1 x 6 cm. A normal-appearing arterial waveforms confirmed to the right ovary. The left ovary measures 2.7 x 2.5 x 1.8 cm and demonstrates an unremarkable appearance, with less betsy n 12 follicles. IMPRESSION: A prominent 6.5 cm complex cyst is seen involving the right ovary, which is likely related to a hemor rhagic cyst in a patient of this age. Please consider a short-term follow-up ultrasound in 6 weeks t o ensure resolution/improvement. Apparent bilateral double renal collecting system seen on each side. At the inferior pole the left kidney, there is caliectasis seen, which improves postvoid. Reviewed by: Cesar Jennings MD on 08/09/2020 4:02 PM RERE Approved by: Cesar Jennings MD on 08/09/2020 4:02 PM AKNAVI Station ID: [id number]
== END 2020-08-09 11:11 | disposition home or self-care (01) ==
LOC: DI 11:10
PROVIDERS: ATTEND Physician Assistant
DX: N83.201 Unspecified ovarian cyst, right side (principal); N28.89 Other specified disorders of kidney and ureter
CPT/HCPCS: 76830; 76856

== ENCOUNTER 2021-02-07 13:23 | Emergency (ER) | payer MEDICAID ==
--- NOTE | 2021-02-07 13:40 | ED Physician Documentation ---
PD HPI HEENT - Stated complaint Stated Complaint: SORE THROAT - Chief complaint Chief Complaint: Heent - History obtained from History obtained from: Patient - Additional information Additional information: 6 days with sore throat starting on the left now both sides. She started left some leftover amoxicillin that day and subsequently was seen at the walk-in clinic in [place] 2 days ago and prescribed more amoxicillin. Despite being on amoxicillin for about 6 days, there is no improvement in the sore throat. She has some fatigue but denies fevers or chills. No cough or runny nose. 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 : Chronic bladder infection HEENT: None Psych: Depression, Anxiety Musculoskeletal: None Derm: None - Past Surgical History Past Surgical History: Yes Ortho: ACL reconstruction - Present Medications Home Medications: Ambulatory Orders Medication Instructions Recorded Confirmed predniSONE [Deltasone] 20 mg PO [id number] #21 tab 02/07/21 - Allergies Allergies/Adverse Reactions: Allergies Allergy/AdvReac Type Severity Reaction Status Date / Time No Known Drug Allergies Allergy Verified 02/07/21 13:28 - Social History Does the pt smoke?: Yes Smoking Status: Current every day smoker Does the pt drink ETOH?: No Does the pt have substance abuse?: No - Immunizations Immunizations are current?: Yes - POLST Patient has POLST: No PD ED PE NORMAL - Vitals Vital signs reviewed: Yes - General General: Alert and oriented X 3, No acute distress - HEENT HEENT: PERRL, EOMI - Neck Neck: Other (She has exudative tonsillitis with mild swelling but patent airway. She also has significant left greater than right anterior cervical adenopathy.) - Derm Derm: No rash - Neuro Neuro: Alert and oriented X 3, Normal speech Results - Vitals Vitals: Vital Signs - 24 hr 02/07/21 13:28 Temperature 36.9 C Heart Rate 97 Respiratory 18 Rate Blood Pressure 137/100 H O2 Saturation 98 Oxygen O2 Source Room air - Labs Labs: Laboratory Tests 02/07/21 02/07/21 14:01 14:33 Infectious [place] Assay NEGATIVE Group A Strep Rapid Negative Departure - Departure Disposition: Home, Self Care Clinical Impression: Acute pharyngitis Qualifiers: Pharyngitis/tonsillitis etiology: unspecified etiology Qualified Code(s): J02.9 - Acute pharyngitis, unspecified Condition: Good Record reviewed to determine appropriate education?: Yes Instructions: ED Pharyngitis Viral Report Pending Prescriptions: predniSONE [Deltasone] 20 mg PO [id number] #21 tab Comments: Both strep and mono tests are negative. I think you can safely stop the antibiotics at this juncture, we will culture your throat though and if a new prescription is necessary we will call you in about 2 days. The steroids should help with your symptoms of swelling and inflammation in the meantime.
[2021-02-07 14:19] LABS: RAPID STREP SCREEN Negative (Negative)
[2021-02-07 14:45] LABS: INFECTIOUS MONONUCLEOSIS NEGATIVE (Negative)
[2021-02-07 15:11] VITALS: BP 102/74
== END 2021-02-07 15:33 | disposition home or self-care (01) ==
LOC: ED 13:23
DX: J03.90 Acute tonsillitis, unspecified (principal); F17.200 Nicotine dependence, unspecified, uncomplicated
CPT/HCPCS: 36415; 86308; 87070; 87430; 99283; 99284

== ENCOUNTER 2021-03-02 14:13 | Outpatient (CLI) | payer MEDICAID ==
--- NOTE | 2021-03-02 18:12 | Ultrasound Report ---
PROCEDURE: Pelvic w/Transvaginal INDICATIONS: RT SIDE OVARIAN CYST, PELVIC PAIN TECHNIQUE: Real-time scanning was performed of the pelvic organs, with image documentation. Additional endovagi nal scanning was necessary due to incomplete visualization of the adnexal and endometrial structures by transabdominal scanning. COMPARISON: None. FINDINGS: No pathologic free abdominal or pelvic fluid. Uterus: Uterus is anteverted and normal in size at 10.4 x 7.8 x 5.8 cm. Volume of 231 cc. No fibroid s seen. There is an incidental intrauterine . [place]-rump length measuring 1.2 cm, estimated gestatio nal age 7 weeks 2 days. heart rate 138 bpm. Ovaries: Right ovary measures 3.4 x 2.1 x 1.7 cm, volume of 6 cc. Left ovary measures 4 x 2.8 x 2 0.4 cm, volume of 14 cc. Left ovarian corpus luteum measuring 2.3 cm. IMPRESSION: 1. [place] living intrauterine at 7 weeks 2 days based on today's crown-rump length. Feta l heart rate 138 bpm. 2. No perigestational hemorrhage. 3. Small left corpus luteum. Reviewed by: Carlyle Wilson MD on 03/02/2021 6:11 PM PDT Approved by: Carlyle Wilson MD on 03/02/2021 6:11 PM PDT Station ID: [id number]
== END 2021-03-02 14:14 | disposition home or self-care (01) ==
LOC: DI 14:13
PROVIDERS: ATTEND Nurse Practitioner Obstetrics & Gynecology
DX: O34.81 Maternal care for other abnormalities of pelvic organs, first trimester (principal); N83.12 Corpus luteum cyst of left ovary; Z3A.01 Less than 8 weeks gestation of pregnancy

== ENCOUNTER 2021-03-05 08:00 | Outpatient (CLI) | payer MEDICAID ==
[2021-03-05 16:01] LABS: MUDS CUTOFF CONCENTRATIONS CUTOFF CONC BELOW:
[2021-03-05 16:13] LABS: BILIRUBIN,URINE NEGATIVE (NEGATIVE); GLUCOSE, URINE (UA) NEGATIVE (NEGATIVE); KETONES,URINE (UA) NEGATIVE (NEGATIVE); LEUKOCYTE ESTERASE, URINE NEGATIVE (NEGATIVE); NITRITE,URINE NEGATIVE (NEGATIVE); OCCULT BLOOD,URINE NEGATIVE (NEGATIVE); PROTEIN,URINE NEGATIVE (NEGATIVE); UROBILINOGEN,URINE 0.2 (NORMAL) E.U./dL (NORMAL)
[2021-03-05 16:18] LABS: BACTERIA,URINE None Seen /HPF (None Seen); CLARITY,URINE CLEAR (CLEAR); RBC,URINE 0-5 /HPF (0-5); SQUAMOUS EPITHELIAL CELL,UR RARE Squamous (<= Few); WBC,URINE 0-3 /HPF (0-5)
[2021-03-05 16:23] LABS: AMPHETAMINE SCREEN,URINE NEGATIVE (NEGATIVE); BARBITURATE SCREEN,UR NEGATIVE (NEGATIVE); BENZODIAZEPINES SCREEN, URINE NEGATIVE (NEGATIVE); COCAINE SCREEN URINE NEGATIVE (NEGATIVE); METHADONE SCREEN, URINE NEGATIVE (NEGATIVE); METHAMPHETAMINES SCREEN, URINE NEGATIVE (NEGATIVE); OPIATE SCREEN, URINE NEGATIVE (NEGATIVE); OXYCODONE SCREEN, URINE NEGATIVE (NEGATIVE); PROPOXYPHENE SCREEN, URINE NEGATIVE (NEGATIVE); THC CANNABINOID SCREEN, URINE NEGATIVE (NEGATIVE); TRICYCLIC ANTIDEPRESSANT,URINE NEGATIVE (NEGATIVE)
== END 2021-03-05 23:59 | disposition home or self-care (01) ==
LOC: LAB.WC 08:00
PROVIDERS: ATTEND Nurse Practitioner Obstetrics & Gynecology
DX: Z34.80 Encounter for supervision of other normal pregnancy, unspecified trimester (principal); Z36.89 Encounter for other specified antenatal screening
CPT/HCPCS: 80306; 81001; 87086

== ENCOUNTER 2021-04-03 19:49 | Outpatient (CLI) | payer MEDICAID ==
--- NOTE | 2021-04-03 23:20 | Ultrasound Report ---
PROCEDURE: OB First Trimester INDICATIONS: SUPERVISION OF OUTSIDE/PRIOR DATING DATA: Last menstrual period (LMP): 01/09/2021. LMP-based estimated date of delivery (THOMAS): 10/16/2021. First dating scan (date and location): 04/03/2021. Estimated date of delivery (THOMAS) from first dating scan: 10/15/2021. The below data below was generated using the ultrasound THOMAS of 10/15/2021 TECHNIQUE: Real-time scanning was performed of the fetus and maternal pelvic organs, with image documentation. COMPARISON: None FINDINGS: Embryo: There is an intrauterine gestational sac seen, with a pole present, which measures 5.6 cm, which corresponds to an estimated gestational age of 12 weeks 1 day. cardiac activity is s een, with a measured heart rate of 162 bpm. No significant perigestational/subchorionic hemorrhage can be seen. Measurement variability in dating: +/- 4 weeks by LMP, +/- 7 days by mean sac diameter (use before 6 weeks gestation if crown-rump length not able to be measured), +/- 5 days by crown-rump length (6-12 weeks gestation). Maternal organs: Ovaries are within normal limits, with an apparent left ovarian corpus luteal cyst that measures up to 1.3 cm. IMPRESSION: Single live intrauterine . No significant discrepancy is found between the estimated gestational age based upon these images and the estimated gestational age based upon the given date of the last menstrual period. Reviewed by: Cesar Jennings MD on 04/03/2021 10:19 PM RERE Approved by: Cesar Jennings MD on 04/03/2021 10:19 PM RERE Station ID: [id number]
== END 2021-04-03 19:50 | disposition home or self-care (01) ==
LOC: DI 19:49
PROVIDERS: ATTEND Nurse Practitioner Obstetrics & Gynecology
DX: Z34.80 Encounter for supervision of other normal pregnancy, unspecified trimester (principal)